=== PATIENT | female | born 1930 | race Hispanic/Latino ===

== ENCOUNTER 2018-06-01 08:29 | Emergency (ER) | payer OTHER ==
[~2018-06-01] VITALS: Ht 149.9 cm; Wt 136.1 kg
--- OUTSIDE RECORDS SUMMARY | 2018-06-01 08:33 | XMS REPORT | Clinical Summary ---
Author Author [facility] Organization [facility] Address Unknown Phone Unavailable Care Team Providers Care Manufacturing Operations Manager Name Role Phone Iam Levy PCP Unavailable Allergies No Known Allergies Medications End Date Status Medication Sig Dispensed Refills Start Date Active aspirin 81 MG chewable Take 81 mg by 0 tablet mouth daily . 5 Active bimatoprost (LUMIGAN) Place 1 drop 0 0.01 % Drop ophthalmic into both 6 solution eyes nightly . Active furosemide (LASIX) 20 MG TAKE 1 TABLET 0 tablet BY MOUTH 2 6 TIMES DAILY. Active gabapentin (NEURONTIN) Take 100 mg 0 100 MG capsule by mouth 6 nightly . Active lovastatin (MEVACOR) 20 TAKE 1 TABLET 0 MG tablet BY MOUTH 6 EVERY DAY AT 5:00 PM. Active cholecalciferol, vitamin Take 1 0 D3, 2,000 unit Cap capsule by mouth daily . Active vitamins Take 1 tablet 0 A,C,C-sqzo-szhbbp by mouth 2 (PRESERVISION AREDS) (two) times [id number] daily. [id number] Cap Active famotidine (PEPCID) 20 MG Take 1 tablet 0 tablet (20 mg total) 6 by mouth nightly TAKE 1 TABLET BY MOUTH TWICE A DAY. Active glipiZIDE (GLUCOTROL) 5 Take 0.5 0 MG tablet tablets (2.5 6 mg total) by mouth every morning before breakfast. 06/01/2017 carvedilol (COREG) 3.125 Take 1 tablet 60 tablet 0 MG tablet (3.125 mg 6 total) by mouth 2 (two) times daily. 06/01/2017 lisinopril Take 1 tablet 30 tablet 0 (PRINIVIL,ZESTRIL) 5 MG (5 mg total) 6 tablet by mouth daily. Active Problems Problem Noted Date Hypoglycemia secondary to sulfonylurea, accidental or unintentional, 05/30/2016 initial encounter Bilateral leg edema 05/30/2016 CKD (chronic kidney disease) stage 3, GFR 30-59 ml/min 05/30/2016 Dry cough 05/30/2016 Hypertensive urgency 05/30/2016 Dyslipidemia 05/30/2016 Gastroesophageal reflux disease without esophagitis 05/30/2016 Diabetes mellitus with neuropathy 05/30/2016 Mild aortic regurgitation 05/30/2016 Acute on chronic diastolic (congestive) heart failure 05/30/2016 Elevated troponin 05/30/2016 Social History Date Tobacco Use Types Packs/Day Years Used Never Smoker Alcohol Use Drinks/Week oz/Week Comments No Sex Assigned at Date Recorded Not on file Industry Job Start Date Occupation Not on file Not on file Not on file Travel End Travel History Travel Start No recent travel history available. Last Filed Vital Signs Not on file Plan of Treatment Health Maintenance Due Date Last Done Comments INFLUENZA VACCINE 03/26/2018 Results Not on fileafter 05/31/2017 Insurance Payer Benefit Subscriber ID Type Phone Address Plan / Group [employer] xxxxxxxxx Maps HMO ALL Contracted Advance Directives For more information, please contact: [place] [phone] [place] [address] Date Inactivated Comments Code Status Date Activated 06/01/2016 6:47 PM Full Code 05/30/2016 1:41 PM This code status was determined by: Patient 05/01/2014 6:21 PM Full Code 04/29/2014 9:23 PM This code status was determined by: Patient
[2018-06-01] MEDS ORDERED: GABAPENTIN100 MG PO (09:15)
[2018-06-01] MEDS ORDERED: CARVEDILOL3.125 MG PO (09:15)
[2018-06-01] MEDS ORDERED: ASPIR 8181 MG PO (09:15)
[2018-06-01] MEDS ORDERED: [UNRECOGNIZED DRUG - OTHER] PO (09:15)
[2018-06-01] MEDS ORDERED: LOVASTATIN20 MG PO (09:15)
[2018-06-01] MEDS ORDERED: LISINOPRIL10 MG PO (09:15)
[2018-06-01] MEDS ORDERED: FAMOTIDINE20 MG PO (09:15)
[2018-06-01] MEDS ORDERED: LASIX20 MG PO (09:15)
[2018-06-01] MEDS ORDERED: AREDS PO (09:15)
[2018-06-01] MEDS ORDERED: LACTATED RINGER'S 1,000 ML IV SCH (09:51)
[2018-06-01] MEDS ORDERED: SODIUM CHLORIDE 0.9% 1000ML 1,000 ML IV SCH (10:00)
--- NOTE | 2018-06-01 10:23 | Diagnostic Imaging Report ---
CT BRAIN [facility] HISTORY: Altered mental status COMPARISON: None. Technique: Noncontrast axial scans were obtained from skull base to the vertex. Coronal and sagittal reconstructions obtained from the axial data. One or more of the following dose reduction techniques were used: Automated exposure control, adjustment of the mA and/or kV according to patient size, and/or utilization of iterative reconstruction technique. DISCUSSION: Scalp/Skull: Unremarkable. Brain sulci: Prominent, especially along the anterior temporal poles. Ventricles: Compensatory dilatation. Extra-axial spaces: No masses or fluid collections. Carotid siphon and vertebral artery calcifications are present. Parenchyma: Mild bilateral deep white matter hypodensity is likely chronic microvascular ischemic change. Otherwise, no masses, hemorrhage, or large vascular territory acute infarct. Dural sinuses: No abnormal densities. Sellar/Suprasellar region: Intact. Skull base: Intact. Incidental findings: Both ocular lenses are thinned. Mild bilateral maxillary sinus mucosal thickening is present. Nonspecific fluid layers in the left maxillary sinus; correlate for acute sinusitis. IMPRESSION: 1. No acute intracranial abnormalities. 2. Mild supratentorial chronic microvascular ischemic change. 3. Generalized cerebral volume loss with slight temporal predominance. Signed by: Dr. Kedar Bonds M.D. on 06/01/2018 10:20 AM
--- NOTE | 2018-06-01 10:33 | Diagnostic Imaging Report ---
PROCEDURE:CXR 1 [facility] COMPARISON:None. INDICATIONS:ams, low blood sugar FINDINGS: Lines/tubes: None Lungs: Moderate inflation of the lungs. Mild patchy left basilar opacity, likely atelectasis. No evidence of lobar consolidation or pulmonary edema. Pleura: No evidence of pleural effusion or pneumothorax. Heart and mediastinum: The cardiomediastinal silhouette is unremarkable. There is atherosclerotic calcification of the aortic arch. Bones: No acute bony findings. CONCLUSION: No acute radiographic abnormality. Dictated by: MARY KATE MILNER M.D. on 06/01/2018 at 10:44 Electronically approved by: MARY KATE MILNER M.D. on 06/01/2018 at 10:44
== END 2018-06-01 14:13 | disposition short-term general hospital (02) ==
LOC: FSED 08:29 → EDBD 08:29 → FSED 14:13
DX: R41.82 Altered mental status, unspecified (principal); R53.83 Other fatigue; I10 Essential (primary) hypertension; E11.9 Type 2 diabetes mellitus without complications; Z79.84 Long term (current) use of oral hypoglycemic drugs; E66.9 Obesity, unspecified; Z68.44 Body mass index [BMI] 60.0-69.9, adult; I25.10 Atherosclerotic heart disease of native coronary artery without angina pectoris; Z86.73 Personal history of transient ischemic attack (TIA), and cerebral infarction without residual deficits; Z79.82 Long term (current) use of aspirin
CPT/HCPCS: 51700; 70450; 71045; 80053; 81003; 82553; 83880; 84484; 85025; 93005; 99285; J7120

== ENCOUNTER 2018-09-13 17:46 | Observation (INO) | payer OTHER ==
[~2018-09-13] VITALS: Ht 149.9 cm; Wt 90.3 kg
[~2018-09-13 17:46] MED LIST: AREDS PO; ASPIR 8181 MG PO; CARVEDILOL3.125 MG PO; FAMOTIDINE20 MG PO; GABAPENTIN100 MG PO; LASIX20 MG PO; LISINOPRIL10 MG PO; LOVASTATIN20 MG PO; [UNRECOGNIZED DRUG - OTHER] PO
--- OUTSIDE RECORDS SUMMARY | 2018-09-13 17:49 | XMS REPORT | Clinical Summary ---
Author Author GARFIELD [facility] Organization [facility] Address Unknown Phone Unavailable Care Team Providers Care Weight And Balance Control Agent Name Role Phone Iam Levy PCP Unavailable Allergies No Known Allergies Medications End Date Status Medication Sig Dispensed Refills Start Date Active aspirin 81 MG chewable Take 81 mg by 0 tablet mouth daily . 5 Active lovastatin (MEVACOR) 20 TAKE 1 TABLET 0 MG tablet BY MOUTH 6 EVERY DAY AT 5:00 PM. Active cholecalciferol, vitamin Take 1 0 D3, 2,000 unit Cap capsule by mouth daily . Active travoprost (TRAVATAN Z) Place 1 drop 0 0.004 % Drop ophthalmic into both drops eyes nightly. Active famotidine (PEPCID) 20 MG Take 1 tablet 0 tablet (20 mg total) 8 by mouth nightly. Active glipiZIDE (GLUCOTROL) 5 Take 0.5 0 MG tablet tablets (2.5 8 mg total) by mouth daily as needed (if accuchecks > 250). 06/06/2019 Active hydrALAZINE (APRESOLINE) Take 1 tablet 90 tablet 0 10 MG tablet (10 mg total) 8 by mouth 3 (three) times daily as needed (for systolic BP > 140). Active polyethylene glycol Take 17 g by 14 each 0 (GLYCOLAX) 17 gram packet mouth daily 8 as needed (for constipation) . Active senna-docusate (SENOKOT Take 1 tablet 30 tablet 0 S) 8.6-50 mg per tablet by mouth 8 every night as needed for Constipation. Active furosemide (LASIX) 20 MG Take 1 tablet 20 tablet 0 tablet (20 mg total) 8 by mouth daily. 06/11/2019 Active bumetanide (BUMEX) 1 MG Take 1 tablet 20 tablet 0 tablet (1 mg total) 8 by mouth daily. 06/01/2018 Discontinued bimatoprost (LUMIGAN) Place 1 drop 0 0.01 % Drop ophthalmic into both 6 solution eyes nightly . 06/06/2018 Discontinued furosemide (LASIX) 20 MG Take 20 mg by 0 tablet mouth 2 (two) 6 times daily TAKE 1 TABLET BY MOUTH 2 TIMES DAILY. 06/06/2018 Discontinued gabapentin (NEURONTIN) Take 100 mg 0 100 MG capsule by mouth 6 nightly . 06/01/2018 Discontinued vitamins Take 1 tablet 0 A,C,R-utxp-ssvijq by mouth 2 (PRESERVISION AREDS) (two) times 14,320-226-200 daily. ikqt-ej-vhvk Cap 06/01/2018 Discontinued famotidine (PEPCID) 20 MG Take 1 tablet 0 tablet (20 mg total) 6 by mouth nightly TAKE 1 TABLET BY MOUTH TWICE A DAY. 06/01/2018 Discontinued glipiZIDE (GLUCOTROL) 5 Take 0.5 0 MG tablet tablets (2.5 6 mg total) by mouth every morning before breakfast. 06/06/2018 Discontinued carvedilol (COREG) 3.125 Take 3.125 mg 0 MG tablet by mouth 2 (two) times daily with breakfast and dinner. 06/06/2018 Discontinued glipiZIDE (GLUCOTROL) 5 Take 5 mg by 0 MG tablet mouth daily as needed (if accuchecks > 200). 06/06/2018 Discontinued famotidine (PEPCID) 20 MG Take 20 mg by 0 tablet mouth 2 (two) times daily. 06/06/2018 Discontinued lisinopril Take 5 mg by 0 (PRINIVIL,ZESTRIL) 5 MG mouth daily. tablet 06/06/2018 Discontinued furosemide (LASIX) 20 MG Take 1 tablet 0 tablet (20 mg total) 8 by mouth daily TAKE 1 TABLET BY MOUTH 2 TIMES DAILY. 06/10/2018 cefdinir (OMNICEF) 300 MG Take 1 3 capsule 0 12/13/201 capsule capsule (300 8 mg total) by mouth daily for 3 days. Active Problems Problem Noted Date Acute metabolic encephalopathy 06/06/2018 Acute hyperkalemia 06/04/2018 CANDY (acute kidney injury) 06/01/2018 General weakness 06/01/2018 Bradycardia 06/01/2018 Bilateral leg edema 06/01/2018 Essential hypertension 06/01/2018 Diabetic neuropathy associated with type 2 diabetes mellitus 06/01/2018 Physical deconditioning 06/01/2018 CKD (chronic kidney disease) stage 3, GFR 30-59 ml/min 05/30/2016 Hyperlipidemia 05/30/2016 Gastroesophageal reflux disease without esophagitis 05/30/2016 Type 2 diabetes mellitus with stage 3 chronic kidney disease, without 05/30/2016 long-term current use of insulin Chronic diastolic heart failure 05/30/2016 Resolved Problems Problem Noted Date Resolved Date UTI (urinary tract infection) 06/03/2018 06/04/2018 Altered mental status 06/03/2018 06/04/2018 Hypoglycemia secondary to sulfonylurea, accidental or unintentional, 05/30/2016 06/01/2018 initial encounter Bilateral leg edema 05/30/2016 06/01/2018 Dry cough 05/30/2016 06/01/2018 Hypertensive urgency 05/30/2016 06/01/2018 Mild aortic regurgitation 05/30/2016 06/01/2018 Elevated troponin 05/30/2016 06/01/2018 Encounters Care Team Description Date Type Specialty Leonardo Rai MD Generalized weakness (Primary Dx); Peripheral edema; Hypervolemia, unspecified hypervolemia type; Pleural effusion 06/11/2018 Emergency Emergency Medicine 06/11/2018 Travel 06/02/2018 Orders Only General Internal Medicine Rusty Rebollar MD CANDY (acute kidney injury) (HCC) (Primary Dx) 06/01/2018 Hospital Cardiology - Encounter 06/06/2018 after 09/12/2017 Social History Date Tobacco Use Types Packs/Day Years Used Never Smoker Smokeless Tobacco: Never Used Alcohol Use Drinks/Week oz/Week Comments No Sex Assigned at Date Recorded Not on file Industry Job Start Date Occupation Not on file Not on file Not on file Travel End Travel History Travel Start No recent travel history available. Last Filed Vital Signs Time Taken Vital Sign Reading 06/11/2018 10:18 AM [employer] Blood Pressure 158/62 06/11/2018 8:48 AM [employer] Pulse 63 06/11/2018 7:08 AM [employer] Temperature 36.7 C (98 F) 06/11/2018 8:48 AM [employer] Respiratory Rate 18 06/11/2018 10:18 AM [employer] Oxygen Saturation 98% - Inhaled Oxygen - Concentration 06/11/2018 7:08 AM [employer] Weight 81.6 kg (180 lb) 06/11/2018 7:08 AM [employer] Height 157.5 cm (5' 2") 06/11/2018 7:08 AM [employer] Body Mass Index 32.92 Plan of Treatment Not on file Procedures Comments Procedure Name Priority Date/Time Associated Diagnosis REPORT OF PROCEDURE - 08/24/2018 ENDOSCOPY SCAN 11:04 AM [facility] [employer] [facility] REPORT OF PROCEDURE - 06/13/2018 ENDOSCOPY SCAN 7:20 AM [employer] RHYTHM STRIP - SCAN 06/13/2018 7:20 AM [employer] XR CHEST 1 VIEW STAT 06/11/2018 PORTABLE/BEDSIDE 8:05 AM [employer]ERY B-TYPE NATRIURETIC FACTOR STAT 06/11/2018 (BNP) 7:48 AM [employer] [facility]ERY TROPONIN I STAT 06/11/2018 7:48 AM [employer] MAGNESIUM STAT 06/11/2018 7:48 AM [employer]ERY BASIC METABOLIC PANEL (7) STAT 06/11/2018 7:48 AM [employer] ED ECG INTERPRETATION Routine 06/11/2018 7:33 AM [employer] CBC W/PLT COUNT & AUTO STAT 06/11/2018 DIFFERENTIAL 7:23 AM [employer] CBC W/PLT COUNT & AUTO STAT 06/11/2018 DIFFERENTIAL 7:23 AM [employer] ECG 12-LEAD STAT 06/11/2018 7:15 AM [employer] POCT-GLUCOSE METER Routine 06/06/2018 12:26 PM [employer] MR BRAIN WITHOUT IV STAT 06/06/2018 CONTRAST 11:26 AM [employer] EEG AWAKE AND DROWSY BEAR 06/06/2018 10:24 AM [employer] POCT-GLUCOSE METER Routine 06/06/2018 8:58 AM [employer] B-TYPE NATRIURETIC FACTOR Routine 06/06/2018 (BNP) 7:04 AM [employer] [facility]ERY T3, FREE Routine 06/06/2018 6:54 AM [employer] T4, FREE Routine 06/06/2018 6:54 AM [employer]ERY BASIC METABOLIC PANEL (7) Routine 06/06/2018 6:54 AM [employer] ECG 12-LEAD Routine 06/06/2018 6:27 AM [employer]ERY POCT-GLUCOSE METER Routine 06/05/2018 9:11 PM [employer] BLOOD GAS, ARTERIAL STAT 06/05/2018 6:20 PM [employer] POCT-GLUCOSE METER Routine 06/05/2018 5:21 PM [employer]ERY POCT-GLUCOSE METER Routine 06/05/2018 4:46 PM [employer] POCT-GLUCOSE METER Routine 06/05/2018 12:20 PM [employer]ERY POCT-GLUCOSE METER Routine 06/05/2018 8:35 AM [employer] CBC W/PLT COUNT & AUTO Routine 06/05/2018 DIFFERENTIAL 5:49 AM [employer]ERY PHOSPHORUS Routine 06/05/2018 5:49 AM [employer] B-TYPE NATRIURETIC FACTOR Routine 06/05/2018 (BNP) 5:49 AM [employer] CBC W/PLT COUNT & AUTO Routine 06/05/2018 DIFFERENTIAL 5:49 AM [employer]IVERY BASIC METABOLIC PANEL (7) Routine 06/05/2018 5:49 AM [employer] DELIVERY POCT-GLUCOSE METER Routine 06/04/2018 9:17 PM [employer]IVERY POCT-GLUCOSE METER Routine 06/04/2018 6:03 PM [employer]IVERY POCT-GLUCOSE METER Routine 06/04/2018 1:00 PM [employer]ERY POCT-GLUCOSE METER Routine 06/04/2018 9:40 AM [facility] CBC W/PLT COUNT & AUTO Routine 06/04/2018 DIFFERENTIAL 5:18 AM [employer]IV[employer] CBC W/PLT COUNT & AUTO Routine 06/04/2018 DIFFERENTIAL 5:18 AM [employer] DELIVERY BASIC METABOLIC PANEL (7) Routine 06/04/2018 5:18 AM [employer] DELIVERY POCT-GLUCOSE METER Routine 06/03/2018 9:36 PM [employer]IVERY POCT-GLUCOSE METER Routine 06/03/2018 6:36 PM [employer] POTASSIUM Routine 06/03/2018 6:08 PM [employer]IVERY POCT-GLUCOSE METER Routine 06/03/2018 1:27 PM [employer] CBC W/PLT COUNT & AUTO Routine 06/03/2018 DIFFERENTIAL 10:42 AM [employer] CBC W/PLT COUNT & AUTO Routine 06/03/2018 DIFFERENTIAL 10:42 AM [employer] DELIVERY BASIC METABOLIC PANEL (7) Routine 06/03/2018 10:42 AM [employer] DELIVERY POCT-GLUCOSE METER Routine 06/03/2018 7:53 AM [employer] POCT-GLUCOSE METER Routine 06/02/2018 8:51 PM [employer]ERY HEMOGLOBIN AND HEMATOCRIT Routine 06/02/2018 5:51 PM [employer]ERY AMMONIA Routine 06/02/2018 5:51 PM [employer] POCT-GLUCOSE METER Routine 06/02/2018 4:51 PM [employer] URINALYSIS W/ REFLEX Routine 06/02/2018 URINE CULTURE 3:15 PM [employer] URINE CULTURE Routine 06/02/2018 3:15 PM [employer] POCT-GLUCOSE METER Routine 06/02/2018 11:37 AM [employer] CBC W/PLT COUNT & AUTO Routine 06/02/2018 DIFFERENTIAL 11:07 AM [employer] CBC W/PLT COUNT & AUTO Routine 06/02/2018 DIFFERENTIAL 11:07 AM [employer]ERY POTASSIUM Routine 06/02/2018 11:07 AM [employer]ERY POCT-GLUCOSE METER Routine 06/02/2018 7:54 AM [employer]ERY TSH Routine 06/02/2018 5:34 AM [employer] B-TYPE NATRIURETIC FACTOR Routine 06/02/2018 (BNP) 5:34 AM [employer]ERY HEPATIC FUNCTION PANEL Routine 06/02/2018 5:34 AM [employer]ERY BASIC METABOLIC PANEL (7) Routine 06/02/2018 5:34 AM [employer]ERY POCT-GLUCOSE METER Routine 06/02/2018 5:22 AM [employer] ECG 12-LEAD Routine 06/02/2018 1:45 AM [employer] ECG 12-LEAD Routine 06/02/2018 1:45 AM [facility] [facility] Procedure Note - Interface, External Ris In - 06/02/2018 1:50 AM [employer] [employer] Ventricula r Rate 65 BPM Atrial Rate 65 BPM P-R Interval 212 ms QRS Duration 94 ms Q-T Interval 404 ms QTC Calculatio n(Bazett) 420 ms P [place] 47 degrees R [place] -22 degrees T [place] 83 degrees Sinus rhythm with 1st degree A-V block Low voltage QRS Borderline ECG When compared with ECG of 8 16:27, No significan t change was found POCT-GLUCOSE METER Routine 06/01/2018 8:47 PM [employer] [employer] [facility]ERY VENOUS DOPPLER LEGS BEAR 06/01/2018 BILATERAL 8:32 PM [employer]ERY POCT-GLUCOSE METER Routine 06/01/2018 5:32 PM [employer]ERY TROPONIN I STAT 06/01/2018 5:03 PM [employer] ECG 12-LEAD Routine 06/01/2018 4:27 PM [employer] ECG 12-LEAD STAT 06/01/2018 4:26 PM [employer] after 09/12/2017 Results * EKG-SCANNED (08/24/2018 11:04 AM [employer]) Only the most recent of 2 results within the time period is included. Narrative Performed At * RHYTHM STRIP - SCAN (06/13/2018 7:20 AM [employer]) Narrative Performed At * XR chest 1 view portable / bedside (06/11/2018 8:05 AM [employer]) Narrative Performed At FINAL REPORT GE RIS INDICATION: GENERALIZED WEAKNESS, NOT ASSOCIATED WITH EXTREMITIES COMPARISON: May 30, 2016 TECHNIQUE: Single frontal view of the chest. IMPRESSION: Lungs and pleura: Mild interstitial congestion. A moderate left effusion. No right effusion. Heart and mediastinum: Normal heart size. Unremarkable mediastinal contours. Osseous structures: No acute abnormality. Other: None. Signed: JR Rowe Robert MD Report Verified Date/Time:06/11/2018 08:14:52 Reading Location: [address] Neuro Reading Room Procedure Note Interface, External Ris In - 06/11/2018 8:17 AM [employer] FINAL REPORT INDICATION: GENERALIZED WEAKNESS, NOT ASSOCIATED WITH EXTREMITIES COMPARISON: May 30, 2016 TECHNIQUE: Single frontal view of the chest. IMPRESSION: Lungs and pleura: Mild interstitial congestion. A moderate left effusion. No right effusion. Heart and mediastinum: Normal heart size. Unremarkable mediastinal contours. Osseous structures: No acute abnormality. Other: None. Signed: JR Rowe Robert MD Report Verified Date/Time: 06/11/2018 08:14:52 Reading Location: [address] Neuro Reading Room Performing Organization Address City/State/Zipcode Phone Number RIS * Troponin I (06/11/2018 7:48 AM [employer]) Only the most recent of 2 results within the time period is included. Troponin I 0.01 0.00 - 0.03 ng/mL [facility] Specimen Blood - Arm, Right Narrative Performed At Troponin I (TnI) levels must be interpreted in the context of the presenting [facility] symptoms and the clinical findings. Elevated TnI levels indicate myocardial [facility] damage, but are not specific for ischemic heart disease. Elevated TnI levels are seen in patients with other cardiac conditions (including myocarditis and congestive heart failure), and slight TnI elevations occur in patients with other conditions, including sepsis, renal failure, acidosis, acute neurological disease, and persistent tachyarrhythmia. Performing Organization Address City/[facility] [place] [address] [phone] * B-type Natriuretic Factor (BNP) (06/11/2018 7:48 AM [employer] [employer] DELIVERY) Only the most recent of 4 results within the time period is included. BNP 302 (H) 0 - 100 pg/mL [facility] Specimen Blood - Arm, Right Performing Organization Address City/[facility] [address] [phone] * Magnesium (06/11/2018 7:48 AM [employer] [employer]IVERY) Magnesium 2.8 (H)Comment: Specimen 1.6 - 2.6 mg/dL [facility] Specimen Blood - Arm, Right Performing Organization Address [facility] [place] [address] [phone] [place] [address] * Basic Metabolic Panel (06/11/2018 7:48 AM [employer] DELIVERY) Only the most recent of 6 results within the time period is included. Sodium 144 136 - 145 meq/L [facility] Potassium 4.8Comment: Specimen 3.5 - 5.1 meq/L [facility] moderately hemolyzed [facility] Chloride 114 (H) 98 - 107 meq/L [facility] CO2 23 22 - 29 meq/L [facility] BUN 31 (H) 7 - 21 mg/dL [facility] Creatinine 1.30 (H)Comment: Specimen 0.57 - 1.25 mg/dL [facility] moderately hemolyzed [facility] Glucose 121 (H) 70 - 105 mg/dL [facility] Calcium 8.2 (L) 8.4 - 10.2 mg/dL [facility] EGFR 39Comment: ESTIMATED GFR IS mL/min/1.73 sq m [facility] NOT ACCURATE CREATININE [facility] CLEARANCE IN PREDICTING GLOMERULAR FILTRATION RATE. ESTIMATED GFR IS NOT APPLICABLE FOR DIALYSIS PATIENTS. Specimen Blood - Arm, Right Performing Organization Address City/State/Zipcode Phone Number [facility] [address] [place] [address] [facility] * ECG/EKG Interpretation (06/11/2018 7:33 AM [employer] [employer]) Narrative Performed At Leonardo Rai MD 06/11/20187:48 PM ECG/EKG Interpretation Date/Time: 06/11/2018 7:38 AM Performed by: Leonardo Rai MD Authorized by: Leonardo Rai MD The ECG was interpreted by ED physician. The ECG is interpreted as sinus rhythm. Rate is normal rate. Heart rate is 81 BPM. [place] is normal. ECG reviewed and does not meet STEMI criteria. Patient tolerance: Patient tolerated the procedure well with no immediate complications * CBC with platelet count + automated diff (06/11/2018 7:23 AM [employer] [employer]ERY) Only the most recent of 5 results within the time period is included. WBC 5.3 3.5 - 10.5 K/L [facility] RBC 2.89 (L) 3.93 - 5.22 M/L [facility] Hemoglobin 9.0 (L) 11.2 - 15.7 GM/DL [facility] Hematocrit 30.0 (L) 34.1 - 44.9 % [facility] MCV 103.8 (H) 79.4 - 94.8 fL [facility] MCH 31.1 25.6 - 32.2 pg [facility] MCHC 30.0 (L) 32.2 - 35.5 GM/DL [facility] RDW 15.8 (H) 11.7 - 14.4 % [facility] Platelets 118 (L) 150 - 450 K/CU MM [facility] MPV 10.8 9.4 - 12.3 fL [facility] nRBC 0 0 - 0 /100 WBC [facility] % Neutros 67 % [facility] % Lymphs 19 % [facility] % Monos 6 % [facility] % Eos 6 % [facility] % Baso 1 % [facility] # Neutros 3.58 1.56 - 6.13 K/L [facility] # Lymphs 1.03 (L) 1.18 - 3.74 K/L [facility] # Monos 0.34 0.24 - 0.36 K/L [facility] # Eos 0.29 0.04 - 0.36 K/L [facility] # Baso 0.04 0.01 - 0.08 K/L [facility] Immature 1 0 - 1 % [facility] Granulocytes-Relative [facility] Specimen Blood Performing Organization Address City/State/Zipcode Phone Number [facility] [address] [place] [address] [facility] * ECG 12 lead (06/11/2018 7:15 AM [facility] [employer] DELIVERY) Only the most recent of 5 results within the time period is included. Narrative Performed At Ventricular Rate 81 BPM GE MUSE Atrial Rate 81 BPM P-R Interval 166 ms QRS Duration 84 ms Q-T Interval 386 ms QTC Calculation(Bazett) 448 ms P [place] 32 degrees R [place] -33 degrees T [place] 52 degrees Normal sinus rhythm Left axis deviation Low voltage QRS Septal infarct , age undetermined Possible Lateral infarct , age undetermined Abnormal ECG No previous ECGs available Confirmed by MD Galvez Mahboob ([id number]) on 06/11/2018 2:48:46 PM Procedure Note Interface, External Ris In - 06/11/2018 2:49 PM [employer] [employer]ERY Ventricular Rate 81 BPM Atrial Rate 81 BPM P-R Interval 166 ms QRS Duration 84 ms Q-T Interval 386 ms QTC Calculation(Bazett) 448 ms P [place] 32 degrees R [place] -33 degrees T [place] 52 degrees Normal sinus rhythm Left axis deviation Low voltage QRS Septal infarct , age undetermined Possible Lateral infarct , age undetermined Abnormal ECG No previous ECGs available Confirmed by MD Galvez Mahboob ([id number]) on 06/11/2018 2:48:46 PM Performing Organization Address City/State/Zipcode Phone Number [employer] * POC-Glucose meter (06/06/2018 12:26 PM [employer] [employer] DELIVERY) Only the most recent of 22 results within the time period is included. POC-Glucose Meter 231 (H)Comment: TESTED AT 70 - 110 mg/dL [facility] [address] [facility] [address] Specimen Blood Performing Organization Address City/[facility] Phone Number [place] [phone] [place], [place] [phone] [facility] * MR brain without IV contrast (06/06/2018 11:26 AM [employer] DELIVERY) Narrative Performed At FINAL REPORT [employer] MR, BRAIN, WITHOUT CONTRAST INDICATION: Stroke weakness, confusion TECHNIQUE: Multiplanar, multisequence MR imaging of the brain without intravenous contrast. COMPARISON: Correlation and noncontrast head CT April 29, 2014 FINDINGS: Limited by motion artifact. There is no restricted diffusion.Moderate global volume loss is present. There is no intracranial hemorrhage. Deep white matter changes suggest leukoaraiosis. The ventricles are normal in size and configuration. The larger intracranial vascular flow-voids are preserved. Paranasal sinuses and mastoid air cells are clear. There is normal bone marrow signal intensity within the calvarium and skull base. IMPRESSION: Chronic involutional changes without acute ischemic or hemorrhagic injury. Signed: JR Rowe Robert MD Report Verified Date/Time:06/06/2018 11:30:38 Reading Location: [facility] Neuro Reading Room Procedure Note Interface, External Ris In - 06/06/2018 11:32 AM [employer] DELIVERY FINAL REPORT MR, BRAIN, WITHOUT CONTRAST INDICATION: Stroke weakness, confusion TECHNIQUE: Multiplanar, multisequence MR imaging of the brain without intravenous contrast. COMPARISON: Correlation and noncontrast head CT April 29, 2014 FINDINGS: Limited by motion artifact. There is no restricted diffusion. Moderate global volume loss is present. There is no intracranial hemorrhage. Deep white matter changes suggest leukoaraiosis. The ventricles are normal in size and configuration. The larger intracranial vascular flow-voids are preserved. Paranasal sinuses and mastoid air cells are clear. There is normal bone marrow signal intensity within the calvarium and skull base. IMPRESSION: Chronic involutional changes without acute ischemic or hemorrhagic injury. Signed: JR Rowe Robert MD Report Verified Date/Time: 06/06/2018 11:30:38 Reading Location: [facility] [address] Neuro Reading Room Performing Organization Address City/State/Zipcode Phone Number [facility] * EEG AWAKE AND DROWSY (06/06/2018 10:24 AM [employer] DELIVERY) Narrative Performed At DATE OF EXAMINATION: 06/06/18 [employer] EEG NO: [id number] ICD-10: G40.9 CPT: 04803 CONDITION OF REPORT: This is a digital EEG study, using the standard International 10-20 System for placement of 22 electrodes, including eye movement leads, and an EKG lead. TECHNICAL SUMMARY: During the maximally awake state, a well-regulated, moderate amplitude occipital dominant rhythm of 9-10 Hz alpha is present bilaterally. More anteriorly, similar as well as faster frequencies of lower amplitudes are present, including low voltage 13-18 Hz beta in the anterior leads. Hyperventilation was not performed. Photic stimulation elicits no epileptiform activity. With drowsiness, the overall background amplitudes are relatively diminished, while increased amounts of diffuse 5-7 Hz theta and rhythmical slowing emerge. During sleep, POSTS, sleep spindles, K-complexes, and vertex waves are present. IMPRESSION: This is a normal EEG study, capturing the full spectrum of the awake, drowsy, and asleep states. There is no evidence for epileptiform abnormality, including absence of electrographic seizure. COMMENT: The absence of epileptiform abnormality does not necessarily preclude the clinical diagnosis of epilepsy. Baldo Marinelli MD Department of Neurology [facility] Procedure Note Interface, External Ris In - 06/06/2018 11:39 AM [employer]F DELIVERY DATE OF EXAMINATION: 06/06/18 EEG NO: [id number] ICD-10: G40.9 CPT: 70068 CONDITION OF REPORT: This is a digital EEG study, using the standard International 10-20 System for placement of 22 electrodes, including eye movement leads, and an EKG lead. TECHNICAL SUMMARY: During the maximally awake state, a well-regulated, moderate amplitude occipital dominant rhythm of 9-10 Hz alpha is present bilaterally. More anteriorly, similar as well as faster frequencies of lower amplitudes are present, including low voltage 13-18 Hz beta in the anterior leads. Hyperventilation was not performed. Photic stimulation elicits no epileptiform activity. With drowsiness, the overall background amplitudes are relatively diminished, while increased amounts of diffuse 5-7 Hz theta and rhythmical slowing emerge. During sleep, POSTS, sleep spindles, K-complexes, and vertex waves are present. IMPRESSION: This is a normal EEG study, capturing the full spectrum of the awake, drowsy, and asleep states. There is no evidence for epileptiform abnormality, including absence of electrographic seizure. COMMENT: The absence of epileptiform abnormality does not necessarily preclude the clinical diagnosis of epilepsy. Baldo Marinelli MD Department of Neurology [facility] Performing Organization Address City/State/Zipcode Phone Number GE RIS * T3, free (06/06/2018 6:54 AM GAUGER CHIEF DELIVERY) T3, Free 2.50 1.71 - 3.71 pg/mL [facility] Specimen Blood - Arm, Left Narrative Performed At Performing Organization Address City/State/Zipcode Phone Number [facility] [address] [address] [phone] [place] [address] * T4, free (06/06/2018 6:54 AM GAUGER CHIEF DELIVERY) Free T4 1.06 0.70 - 1.48 ng/dL [facility] Specimen Blood - Arm, Left Performing Organization Address [facility] Phone Number [address] [address] [phone] [place] [address] * Blood gas, arterial (06/05/2018 6:20 PM [employer] CHIEF DELIVERY) pH, Arterial 7.48 (H) 7.35 - 7.45 [facility] pCO2, Arterial 37 35 - 45 mmHg [facility] pO2, Arterial 57 (L) 80 - 90 mmHg [facility] O2 Sat, Arterial 92.7 (L) 96.0 - 97.0 % [facility] HCO3, Arterial 27 21 - 29 mmol/L [facility] Base Excess, Arterial 2.7 -2.0 - 3.0 mmol/L [facility] Patient Temperature 35.9 C [facility] FIO2 21.0 % [facility] Specimen Blood, Arterial - Arm, Left Performing Organization Address [facility] Phone Number [address] [address] [phone] [place] [address] * Phosphorus (06/05/2018 5:49 AM GAUGER CHIEF DELIVERY) Phosphorus 3.9 2.3 - 4.7 mg/dL [facility] Specimen Blood - Arm, Left Performing Organization Address City/[facility] [place] [place] [address] [phone] * Potassium (06/03/2018 6:08 PM [employer]GER CHIEF DELIVERY) Only the most recent of 2 results within the time period is included. Potassium 5.5 (H) 3.5 - 5.1 meq/L [facility] Specimen Blood - Arm, Left Performing Organization Address [facility] Phone Number [address] * Hemoglobin and hematocrit (06/02/2018 5:51 PM [employer]GER CHIEF DELIVERY) Hemoglobin 8.3 (L) 11.2 - 15.7 GM/DL [facility] Hematocrit 26.8 (L) 34.1 - 44.9 % [facility] Specimen Blood - Arm, Left Performing Organization Address [facility] Phone Number [address] * Ammonia (06/02/2018 5:51 PM [employer]AUGER CHIEF DELIVERY) Ammonia 38 18 - 72 mol/L [facility] Specimen Blood - Arm, Left Performing Organization Address [facility] Phone Number [address] * Urinalysis w/Microscopic + Reflex to Culture (06/02/2018 3:15 PM [employer] CHIEF DELIVERY) Color, UA Yellow [facility] Clarity, UA Hazy [facility] Specific Nuevo, UA 1.013 1.001 - 1.035 [facility] pH, UA 5.0 5.0 - 8.0 [facility] Protein, UA 30 mg/dL (A) Negative [facility] Glucose, UA Negative Negative [facility] Ketones, UA Negative Negative [facility] Bilirubin, UA Negative Negative [facility] Blood, UA Large (A) Negative [facility] Nitrite, UA Negative Negative [facility] Leukocytes, UA Large (A) Negative [facility] Urobilinogen, UA 0.2 0.2 - 1.0 mg/dL [facility] RBC, UA 327 /HPF [facility] WBC, UA 81 /HPF [facility] Squam Epithel, UA 4 /HPF [facility] Hyaline Casts, UA 6 /LPF [facility] Specimen Source [facility] Specimen Urine - Urine, Ramey Performing Organization Address [facility] Phone Number [address] [address] MED[facility]ENTER * Urine culture (06/02/2018 3:15 PM [employer]AUGER CHIEF DELIVERY) Result ESCHERICHIA COLI (A) [facility] Specimen Urine - Urine, Ramey Antibiotic Method Susceptibility Organism Amikacin <=2: Susceptible Escherichia coli Ampicillin + Sulbactam <=2: Susceptible Escherichia coli Aztreonam <=1: Susceptible Escherichia coli Cefepime <=1: Susceptible Escherichia coli Cefoxitin 16: Resistant Escherichia coli Ceftazidime <=1: Susceptible Escherichia coli Ceftriaxone <=1: Susceptible Escherichia coli Ertapenem <=0.5: Susceptible Escherichia coli Gentamicin <=1: Susceptible Escherichia coli Levofloxacin <=0.12: Susceptible Escherichia coli Meropenem <=0.25: Susceptible Escherichia coli Nitrofurantoin 32: Susceptible Escherichia coli Piperacillin + Tazobactam <=4: Susceptible Escherichia coli Tetracycline <=1: Susceptible Escherichia coli Tobramycin <=1: Susceptible Escherichia coli Trimethoprim + Sulfamethoxazole <=20: Susceptible Escherichia coli Performing Organization Address [facility] Phone Number [address] [address] [facility] [place] * TSH (06/02/2018 5:34 AM GAUGER CHIEF DELIVERY) TSH 9.24 (H) 0.35 - 4.94 uIU/mL [facility] Specimen Blood - Arm, Right Performing Organization Address [facility] Phone Number [facility] [address] [place] [address] [facility] * Hepatic function panel (06/02/2018 5:34 AM [employer]GER CHIEF DELIVERY) Protein, Total 5.9 (L)Comment: Specimen 6.0 - 8.3 gm/dL [facility] Albumin 3.0 (L)Comment: Specimen 3.5 - 5.0 g/dL [facility] slightly hemolyzed [facility] Total Bilirubin 0.3Comment: Specimen slightly 0.2 - 1.2 mg/dL [facility] Bilirubin, Direct 0.1Comment: Specimen slightly 0.1 - 0.5 mg/dL [facility] Alkaline Phosphatase 86 40 - 150 U/L [facility] AST 29Comment: Specimen slightly 5 - 34 U/L [facility] ALT 21Comment: Specimen slightly 6 - 55 U/L [facility] Specimen Blood - Arm, Right Performing Organization Address City/State/Zipcode Phone Number [facility] [address] [place] [address] [phone] [address] * Venous doppler legs bilateral (06/01/2018 8:32 PM [employer]GER CHIEF DELIVERY) Ejection Fraction [facility]ART[facility] MKCKESSON CPACS Impressions Performed At Right Impression [facility]ART[facility] 1. There is no deep venous obstruction in the common femoral, profunda MKCKESSON CPACS femoral, femoral, popliteal or posterior tibial veins where visualized. 2. The peroneal veins are not visualized. 3. There is no superficial venous obstruction in the great saphenous vein where visualized. Left Impression 1. There is no deep venous obstruction in the common femoral, profunda femoral or femoral veins where visualized. 2. The popliteal, posterior tibial and peroneal veins are not visualized. 3. There is no superficial venous obstruction in the great saphenous vein where visualized. Conclusions Summary Venous duplex imaging and compression of the bilateral lower extremities were performed. The veins were technically difficult to visualize due to edema and patient body habitus. The bilateral venous systems were patent and compressible with no evidence of thrombus where visualized. The venous Doppler waveforms were phasic with respiration . Signature Velocities are measured in cm/s ; Diameters are measured in cm Narrative Performed At LAB - Lower Extremities DVT Study [facility] Demographics [facility] Patient Name LUCAS WRIGHT Date of Study06/01/2018 BEN [id number] Visit Number [id number] Gender Female Accession Number [id number] Date of Birth1930 [facility] Rusty Neil Room [id number] Physician Yoly GalarzaInterpreting Maura Mcleod MD RVTPhysician Procedure Type of Study: Veins: Lower Extremities DVT Study, VENOUS DOPPLER LEG, BILATERAL. Indications for Study:Leg swelling. Patient Status:BEAR. Study Location:Portable. Technical Quality:Technically Difficult. Risk Factors History of Disease + + + + !Diagnosis!Date !Comments ! + + + + !CHF !! ! + + + + !History/Risk Factors:!06/01/2018!Leg Swelling ! + + + + Procedure Note Interface, External Ris In - 06/02/2018 5:36 PM GAUGER CHIEF DELIVERY [facility] LAB - Lower Extremities DVT Study Demographics Patient Name LUCAS WRIGHT Date of Study 06/01/2018 BEN Age 87 Visit Number [id number] Gender Female Accession Number [id number] Date of 1930 Referring Smooth Neil Room Number [id number] Physician Bodily Injury Adjuster Mounika Galarza Interpreting Maura Mcleod MD RVT Physician Procedure Type of Study: Veins: Lower Extremities DVT Study, VENOUS DOPPLER LEG, BILATERAL. Indications for Study:Leg swelling. Patient Status:BEAR. Study Location:Portable. Technical Quality:Technically Difficult. Risk Factors History of Disease + + + + !Diagnosis !Date !Comments ! + + + + !CHF ! ! ! + + + + !History/Risk Factors: !06/01/2018!Leg Swelling ! + + + + Impressions Right Impression 1. There is no deep venous obstruction in the common femoral, profunda femoral, femoral, popliteal or posterior tibial veins where visualized. 2. The peroneal veins are not visualized. 3. There is no superficial venous obstruction in the great saphenous vein where visualized. Left Impression 1. There is no deep venous obstruction in the common femoral, profunda femoral or femoral veins where visualized. 2. The popliteal, posterior tibial and peroneal veins are not visualized. 3. There is no superficial venous obstruction in the great saphenous vein where visualized. Conclusions Summary Venous duplex imaging and compression of the bilateral lower extremities were performed. The veins were technically difficult to visualize due to edema and patient body habitus. The bilateral venous systems were patent and compressible with no evidence of thrombus where visualized. The venous Doppler waveforms were phasic with respiration . Signature Velocities are measured in cm/s ; Diameters are measured in cm Performing Organization Address City/State/Zipcode Phone Number [facility] MKCKESSON CPACS after 09/12/2017 Insurance Payer Benefit Subscriber ID Type Phone Address Plan / Group [employer] xxxxxxxxx Maps O ALL Contracted Advance Directives For more information, please contact: [facility] [address] [place] [phone] Date Inactivated Comments Code Status Date Activated 06/11/2018 7:00 AM Full Code 06/01/2018 4:58 PM This code status was determined by: Patient 06/01/2016 6:47 PM Full Code 05/30/2016 1:41 PM This code status was determined by: Patient 05/01/2014 6:21 PM Full Code 04/29/2014 9:23 PM This code status was determined by: Patient
--- OUTSIDE RECORDS SUMMARY | 2018-09-13 17:50 | XMS REPORT ---
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 Allergies, Adverse Reactions, Alerts This patient has no known allergies or adverse reactions. Medications This patient has no known medications. Results Test Description Test Time Test Comments Text Results Atomic Results Result Comments TROPONIN I 2018-06-11 08:28:00 TROPONIN I (BEAKER) (test wdvz=547) 0.01 ng/mL 0.00-0.03 Troponin I (TnI) levels must be interpreted in the context of the presenting sym ptoms and the clinical findings. Elevated TnI levels indicate myocardial damage, but are not specific for ischemic heart disease. Elevated TnI levels are seen in patients with other cardiac conditions (including myocarditis and congestive h eart failure), and slight TnI elevations occur in patients with other conditions , including sepsis, renal failure, acidosis, acute neurological disease, and per sistent tachyarrhythmia.B-TYPE NATRIURETIC FACTOR (BNP)2018-06-11 08:26:00* Test Item Value Reference Range Comments B-TYPE NATRIURETIC PEPTIDE (BEAKER) (test skmh=863) 302 pg/mL 0-100 [id number] 08:20:00* Test Item Value Reference Range Comments MAGNESIUM (BEAKER) (test rqlc=360) 2.8 mg/dL 1.6-2.6 Specimen moderately hemolyzed BASIC METABOLIC [id number] 08:20:00* Test Item Value Reference Range Comments SODIUM (BEAKER) (test xufr=485) 144 meq/L 136-145 POTASSIUM (BEAKER) (test qjsy=345) 4.8 meq/L 3.5-5.1 Specimen moderately hemolyzed CHLORIDE (BEAKER) (test knxs=200) 114 meq/L 98-107 CO2 (BEAKER) (test xtjf=387) 23 meq/L 22-29 BLOOD UREA NITROGEN (BEAKER) (test qfcw=451) 31 mg/dL 7-21 CREATININE (BEAKER) (test cqkt=615) 1.30 mg/dL 0.57-1.25 Specimen moderately hemolyzed GLUCOSE RANDOM (BEAKER) (test apyz=632) 121 mg/dL 70-105 CALCIUM (BEAKER) (test enpt=189) 8.2 mg/dL 8.4-10.2 EGFR (BEAKER) (test fbzh=2202) 39 mL/min/1.73 sq m ESTIMATED GFR IS NOT ACCURATE CREATININE CLEARANCE IN PREDICTING GLOMERULAR FILTRATION RATE. ESTIMATED GFR IS NOT APPLICABLE FOR DIALYSIS PATIENTS. RAD, CHEST, 1 VIEW, NON [id number] 08:14:00Reason for exam:->GENERALIZED WEAKNESS, NOT ASSOCIATED WITH EXTREMITIESFINAL REPORT INDICATION: GENERALIZED WEAKNESS, NOT ASSOCIATED WITH EXTREMITIES COMPARISON: May 30, 2016 TECHNIQUE: Single frontal view of the chest. IMPRESSION:Lungs and pleura: Mild interstitial congestion. A moderate left effusion. No right effusion.Heart and mediastinum: Normal heart size. Unremarkable mediastinal contours.Osseous structures: No acute abnormality.Other: None. Signed: JR Rowe Robert MDReport Verified Date/Time: 06/11/2018 08:14:52 Reading Location: [address] Neuro Reading Room W/PLT COUNT & AUTO [id number] 07:32:00* Test Item Value Reference Range Comments WHITE BLOOD CELL COUNT (BEAKER) (test uvyx=669) 5.3 K/ L 3.5-10.5 RED BLOOD CELL COUNT (BEAKER) (test hqiz=328) 2.89 M/ L 3.93-5.22 HEMOGLOBIN (BEAKER) (test pezn=065) 9.0 GM/DL 11.2-15.7 HEMATOCRIT (BEAKER) (test ibmb=576) 30.0 % 34.1-44.9 MEAN CORPUSCULAR VOLUME (BEAKER) (test onmk=840) 103.8 fL 79.4-94.8 MEAN CORPUSCULAR HEMOGLOBIN (BEAKER) (test idhd=084) 31.1 pg 25.6-32.2 MEAN CORPUSCULAR HEMOGLOBIN CONC (BEAKER) (test vffg=060) 30.0 GM/DL 32.2-35.5 RED CELL DISTRIBUTION WIDTH (BEAKER) (test pyfc=659) 15.8 % 11.7-14.4 PLATELET COUNT (BEAKER) (test uldx=124) 118 K/CU MM 150-450 MEAN PLATELET VOLUME (BEAKER) (test zisl=994) 10.8 fL 9.4-12.3 NUCLEATED RED BLOOD CELLS (BEAKER) (test west=827) 0 /100 WBC 0-0 NEUTROPHILS RELATIVE PERCENT (BEAKER) (test fgeo=008) 67 % LYMPHOCYTES RELATIVE PERCENT (BEAKER) (test jchp=030) 19 % MONOCYTES RELATIVE PERCENT (BEAKER) (test xxzz=737) 6 % EOSINOPHILS RELATIVE PERCENT (BEAKER) (test lslx=695) 6 % BASOPHILS RELATIVE PERCENT (BEAKER) (test fxfu=504) 1 % NEUTROPHILS ABSOLUTE COUNT (BEAKER) (test pakt=182) 3.58 K/ L 1.56-6.13 LYMPHOCYTES ABSOLUTE COUNT (BEAKER) (test qaxm=629) 1.03 K/ L 1.18-3.74 MONOCYTES ABSOLUTE COUNT (BEAKER) (test rlps=873) 0.34 K/ L 0.24-0.36 EOSINOPHILS ABSOLUTE COUNT (BEAKER) (test wqwp=205) 0.29 K/ L 0.04-0.36 BASOPHILS ABSOLUTE COUNT (BEAKER) (test guyd=392) 0.04 K/ L 0.01-0.08 IMMATURE GRANULOCYTES-RELATIVE PERCENT (BEAKER) (test tzjk=4084) 1 % 0-1 T3, [id number] 14:15:00* Test Item Value Reference Range Comments T3 FREE (BEAKER) (test room=242) 2.50 pg/mL 1.71-3.71 POCT-GLUCOSE [id number] 12:36:00* Test Item Value Reference Range Comments POC-GLUCOSE METER (BEAKER) (test vsxe=5356) 231 mg/dL 70-[address] [facility] [address] [facility] [address] EEG AWAKE AND [id number] 11:39:00Reason for exam:->confusionDATE OF EXAMINATION: 06/06/18 EEG NO: [id number] ICD-10: G40.9 CPT: 96994 CONDITION OF REPORT: This is a digital EEG study, using the standard International 10-20 System for placement of 22 electrodes, including eye movement leads, and an EKG lead. TECHNICAL SUMMARY: During the maximally awake state, a well-regulated, moderate amplitude occipital dominant rhythm of 9-10 Hz alpha is present bilat erally. More anteriorly, similar as well as faster frequencies of lower amplitud es are present, including low voltage 13-18 Hz beta in the anterior leads. Hyp erventilation was not performed. Photic stimulation elicits no epileptiform acti vity. With drowsiness, the overall background amplitudes are relatively dimini shed, while increased amounts of diffuse 5-7 Hz theta and rhythmical slowing remy rge. During sleep, POSTS, sleep spindles, K-complexes, and vertex waves are pres ent. IMPRESSION: This is a normal EEG study, capturing the full spectrum of th e awake, drowsy, and asleep states. There is no evidence for epileptiform abnorm ality, including absence of electrographic seizure. COMMENT: The absence of ep ileptiform abnormality does not necessarily preclude the clinical diagnosis of e pilepsy. Baldo Evans MD Department of Neurology [facility] e , BRAIN, WITHOUT [id number] 11:30:00Reason for exam:->weakness, confusionWhat is the patient's sedation requirement?->No SedationFINAL REPORT MR, BRAIN, WITHOUT CONTRAST INDICATION: Strokeweakness, confusion TECHNIQUE: Multiplanar, multisequence MR imaging of the brain without intravenous contrast. COMPARISON: Correlation and noncontrast head CT April 29, 2014 FINDINGS: Limited by motion artifact. There is no restricted diffusion. Moderate global volume loss is present. There is no intracranial hemorrhage. Deep white matter changes suggest leukoaraiosis. The ventricles are normal in size and configuration. The larger intracranial vascular flow-voids are p reserved. Paranasal sinuses and mastoid air cells are clear. There is normal bon e marrow signal intensity within the calvarium and skull base. 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 Signed: Jackie kenney JR, Shilpa NICEeport Verified Date/Time: 06/06/2018 11:30:38 Lance quiros Location: [facility] C013V Neuro Reading Room -GLUCOSE [id number] 09:02:00* Test Item Value Reference Range Comments POC-GLUCOSE METER (BEAKER) (test ozoc=4021) 170 mg/dL 70-[address] [facility] [address] [facility] [address] T4, [id number] 07:54:00* Test Item Value Reference Range Comments FREE T4 (BEAKER) (test gnyr=975) 1.06 ng/dL 0.70-1.48 B-TYPE NATRIURETIC FACTOR (BNP)2018-06-06 07:41:00* Test Item Value Reference Range Comments B-TYPE NATRIURETIC PEPTIDE (BEAKER) (test eaby=921) 422 pg/mL 0-100 BASIC METABOLIC [id number] 07:17:00* Test Item Value Reference Range Comments SODIUM (BEAKER) (test henv=835) 145 meq/L 136-145 POTASSIUM (BEAKER) (test jdxw=228) 4.1 meq/L 3.5-5.1 Specimen slightly hemolyzed CHLORIDE (BEAKER) (test giqh=940) 116 meq/L 98-107 CO2 (BEAKER) (test vyvk=211) 23 meq/L 22-29 BLOOD UREA NITROGEN (BEAKER) (test hbhf=983) 38 mg/dL 7-21 CREATININE (BEAKER) (test stkd=739) 1.35 mg/dL 0.57-1.25 Specimen slightly hemolyzed GLUCOSE RANDOM (BEAKER) (test zuar=338) 91 mg/dL 70-105 CALCIUM (BEAKER) (test tjhz=349) 8.3 mg/dL 8.4-10.2 EGFR (BEAKER) (test qoqk=5369) 37 mL/min/1.73 sq m ESTIMATED GFR IS NOT ACCURATE CREATININE CLEARANCE IN PREDICTING GLOMERULAR FILTRATION RATE. ESTIMATED GFR IS NOT APPLICABLE FOR DIALYSIS PATIENTS. POCT-GLUCOSE [id number] 21:13:00* Test Item Value Reference Range Comments POC-GLUCOSE METER (BEAKER) (test hoao=5120) 181 mg/dL 70-110 [address]ED AT [address] [address] BLOOD GAS, [id number] 18:30:00* Test Item Value Reference Range Comments PH ARTERIAL (BEAKER) (test cmoz=183) 7.48 7.35-7.45 PCO2 ARTERIAL (BEAKER) (test vfzf=957) 37 mmHg 35-45 PO2 ARTERIAL (BEAKER) (test yiwi=210) 57 mmHg 80-90 O2 SATURATION ARTERIAL (BEAKER) (test gdgt=951) 92.7 % 96.0-97.0 HCO3 ARTERIAL (BEAKER) (test pvmz=087) 27 mmol/L 21-29 BASE EXCESS ARTERIAL (BEAKER) (test oohx=725) 2.7 mmol/L -2.0-3.0 PATIENT TEMPERATURE (BEAKER) (test ornp=1855) 35.9 C FIO2 (BEAKER) (test dmww=2675) 21.0 % POCT-GLUCOSE [id number] 17:48:00* Test Item Value Reference Range Comments POC-GLUCOSE METER (BEAKER) (test egpw=2404) 181 mg/dL 70-110 [address]ED AT [address] [address] POCT-GLUCOSE [id number] 16:49:00* Test Item Value Reference Range Comments POC-GLUCOSE METER (BEAKER) (test fnxu=2818) 162 mg/dL 70-110 TESTED AT [address] [address] POCT-GLUCOSE [id number] 12:35:00* Test Item Value Reference Range Comments POC-GLUCOSE METER (BEAKER) (test aciy=6332) 188 mg/dL 70-110 TESTED AT [address] [address] POCT-GLUCOSE [id number] 08:37:00* Test Item Value Reference Range Comments POC-GLUCOSE METER (BEAKER) (test jjlg=9945) 140 mg/dL 70-110 TESTED AT [address] [address] B-TYPE NATRIURETIC FACTOR (BNP)2018-06-05 06:29:00* Test Item Value Reference Range Comments B-TYPE NATRIURETIC PEPTIDE (BEAKER) (test ehnc=146) 773 pg/mL 0-100 [id number] 06:29:00* Test Item Value Reference Range Comments PHOSPHORUS (BEAKER) (test yzvm=245) 3.9 mg/dL 2.3-4.7 BASIC METABOLIC [id number] 06:29:00* Test Item Value Reference Range Comments SODIUM (BEAKER) (test iphd=424) 146 meq/L 136-145 POTASSIUM (BEAKER) (test ztdn=121) 4.6 meq/L 3.5-5.1 CHLORIDE (BEAKER) (test gfwg=168) 116 meq/L 98-107 CO2 (BEAKER) (test gqth=021) 21 meq/L 22-29 BLOOD UREA NITROGEN (BEAKER) (test upkz=026) 42 mg/dL 7-21 CREATININE (BEAKER) (test fabz=363) 1.60 mg/dL 0.57-1.25 GLUCOSE RANDOM (BEAKER) (test tmay=635) 91 mg/dL 70-105 CALCIUM (BEAKER) (test ecxl=635) 8.3 mg/dL 8.4-10.2 EGFR (BEAKER) (test ifcl=3172) 30 mL/min/1.73 sq m ESTIMATED GFR IS NOT ACCURATE CREATININE CLEARANCE IN PREDICTING GLOMERULAR FILTRATION RATE. ESTIMATED GFR IS NOT APPLICABLE FOR DIALYSIS PATIENTS. CBC W/PLT COUNT & AUTO [id number] 06:10:00* Test Item Value Reference Range Comments WHITE BLOOD CELL COUNT (BEAKER) (test ikno=857) 6.4 K/ L 3.5-10.5 RED BLOOD CELL COUNT (BEAKER) (test gcal=241) 2.76 M/ L 3.93-5.22 HEMOGLOBIN (BEAKER) (test fvnu=175) 8.5 GM/DL 11.2-15.7 HEMATOCRIT (BEAKER) (test cdps=687) 28.2 % 34.1-44.9 MEAN CORPUSCULAR VOLUME (BEAKER) (test oaeg=631) 102.2 fL 79.4-94.8 MEAN CORPUSCULAR HEMOGLOBIN (BEAKER) (test sfis=404) 30.8 pg 25.6-32.2 MEAN CORPUSCULAR HEMOGLOBIN CONC (BEAKER) (test vmot=034) 30.1 GM/DL 32.2-35.5 RED CELL DISTRIBUTION WIDTH (BEAKER) (test maay=636) 15.4 % 11.7-14.4 PLATELET COUNT (BEAKER) (test hykv=593) 149 K/CU MM 150-450 MEAN PLATELET VOLUME (BEAKER) (test qjsa=268) 10.9 fL 9.4-12.3 NUCLEATED RED BLOOD CELLS (BEAKER) (test nzvm=733) 0 /100 WBC 0-0 NEUTROPHILS RELATIVE PERCENT (BEAKER) (test tqtt=253) 72 % LYMPHOCYTES RELATIVE PERCENT (BEAKER) (test admo=678) 16 % MONOCYTES RELATIVE PERCENT (BEAKER) (test lbgi=753) 8 % EOSINOPHILS RELATIVE PERCENT (BEAKER) (test bwht=709) 3 % BASOPHILS RELATIVE PERCENT (BEAKER) (test xzio=222) 0 % NEUTROPHILS ABSOLUTE COUNT (BEAKER) (test ttdr=302) 4.56 K/ L 1.56-6.13 LYMPHOCYTES ABSOLUTE COUNT (BEAKER) (test fiig=179) 1.03 K/ L 1.18-3.74 MONOCYTES ABSOLUTE COUNT (BEAKER) (test gtcs=227) 0.52 K/ L 0.24-0.36 EOSINOPHILS ABSOLUTE COUNT (BEAKER) (test fbty=808) 0.20 K/ L 0.04-0.36 BASOPHILS ABSOLUTE COUNT (BEAKER) (test tugr=505) 0.02 K/ L 0.01-0.08 IMMATURE GRANULOCYTES-RELATIVE PERCENT (BEAKER) (test ramc=9666) 1 % 0-1 POCT-GLUCOSE [id number] 21:27:00* Test Item Value Reference Range Comments POC-GLUCOSE METER (BEAKER) (test aqzd=9523) 154 mg/dL 70-110 TESTED AT [address] [address] POCT-GLUCOSE [id number] 18:05:00* Test Item Value Reference Range Comments POC-GLUCOSE METER (BEAKER) (test nxqk=5456) 144 mg/dL 70-110 TESTED AT [address] [address] POCT-GLUCOSE [id number] 13:15:00* Test Item Value Reference Range Comments POC-GLUCOSE METER (BEAKER) (test yqjj=7748) 103 mg/dL 70-110 TESTED AT [address] [address] POCT-GLUCOSE [id number] 09:58:00* Test Item Value Reference Range Comments POC-GLUCOSE METER (BEAKER) (test pnjt=9179) 118 mg/dL 70-[address] [facility] [address] [facility] [address] BASIC METABOLIC [id number] 06:13:00* Test Item Value Reference Range Comments SODIUM (BEAKER) (test soov=662) 143 meq/L 136-145 POTASSIUM (BEAKER) (test efrz=336) 5.4 meq/L 3.5-5.1 CHLORIDE (BEAKER) (test jhjq=397) 114 meq/L 98-107 CO2 (BEAKER) (test xajb=875) 22 meq/L 22-29 BLOOD UREA NITROGEN (BEAKER) (test hqsf=837) 48 mg/dL 7-21 CREATININE (BEAKER) (test kpjc=716) 1.68 mg/dL 0.57-1.25 GLUCOSE RANDOM (BEAKER) (test xrqm=226) 69 mg/dL 70-105 CALCIUM (BEAKER) (test dwgt=855) 8.2 mg/dL 8.4-10.2 EGFR (BEAKER) (test llkt=5794) 29 mL/min/1.73 sq m ESTIMATED GFR IS NOT ACCURATE CREATININE CLEARANCE IN PREDICTING GLOMERULAR FILTRATION RATE. ESTIMATED GFR IS NOT APPLICABLE FOR DIALYSIS PATIENTS. CBC W/PLT COUNT & AUTO [id number] 05:42:00* Test Item Value Reference Range Comments WHITE BLOOD CELL COUNT (BEAKER) (test wppe=843) 5.2 K/ L 3.5-10.5 RED BLOOD CELL COUNT (BEAKER) (test xmyp=228) 2.68 M/ L 3.93-5.22 HEMOGLOBIN (BEAKER) (test lsrh=609) 8.2 GM/DL 11.2-15.7 HEMATOCRIT (BEAKER) (test demu=435) 27.1 % 34.1-44.9 MEAN CORPUSCULAR VOLUME (BEAKER) (test dsxf=347) 101.1 fL 79.4-94.8 MEAN CORPUSCULAR HEMOGLOBIN (BEAKER) (test zkeh=008) 30.6 pg 25.6-32.2 MEAN CORPUSCULAR HEMOGLOBIN CONC (BEAKER) (test udfp=095) 30.3 GM/DL 32.2-35.5 RED CELL DISTRIBUTION WIDTH (BEAKER) (test qcrf=860) 15.2 % 11.7-14.4 PLATELET COUNT (BEAKER) (test seic=439) 152 K/CU MM 150-450 MEAN PLATELET VOLUME (BEAKER) (test aohe=361) 10.7 fL 9.4-12.3 NUCLEATED RED BLOOD CELLS (BEAKER) (test ftgr=515) 0 /100 WBC 0-0 NEUTROPHILS RELATIVE PERCENT (BEAKER) (test rnul=622) 65 % LYMPHOCYTES RELATIVE PERCENT (BEAKER) (test xacf=795) 23 % MONOCYTES RELATIVE PERCENT (BEAKER) (test gnkz=442) 8 % EOSINOPHILS RELATIVE PERCENT (BEAKER) (test rmcf=153) 3 % BASOPHILS RELATIVE PERCENT (BEAKER) (test kdac=638) 0 % NEUTROPHILS ABSOLUTE COUNT (BEAKER) (test rrjh=300) 3.40 K/ L 1.56-6.13 LYMPHOCYTES ABSOLUTE COUNT (BEAKER) (test jabl=901) 1.19 K/ L 1.18-3.74 MONOCYTES ABSOLUTE COUNT (BEAKER) (test qcyi=601) 0.43 K/ L 0.24-0.36 EOSINOPHILS ABSOLUTE COUNT (BEAKER) (test srir=947) 0.16 K/ L 0.04-0.36 BASOPHILS ABSOLUTE COUNT (BEAKER) (test jkcf=649) 0.02 K/ L 0.01-0.08 IMMATURE GRANULOCYTES-RELATIVE PERCENT (BEAKER) (test lach=2508) 1 % 0-1 POCT-GLUCOSE [id number] 21:38:00* Test Item Value Reference Range Comments POC-GLUCOSE METER (BEAKER) (test duou=3395) 91 mg/dL 70-110 TESTED AT [place] [id number] 18:41:00* Test Item Value Reference Range Comments POTASSIUM (BEAKER) (test mptp=624) 5.5 meq/L 3.5-5.1 POCT-GLUCOSE [id number] 18:38:00* Test Item Value Reference Range Comments POC-GLUCOSE METER (BEAKER) (test gofy=3756) 94 mg/dL 70-110 TESTED AT [place] [id number] POCT-GLUCOSE [id number] 13:29:00* Test Item Value Reference Range Comments POC-GLUCOSE METER (BEAKER) (test jqgs=8481) 81 mg/dL 70-110 TESTED AT [place] [id number] CBC W/PLT COUNT & AUTO [id number] 11:39:00* Test Item Value Reference Range Comments WHITE BLOOD CELL COUNT (BEAKER) (test bpbw=997) 3.2 K/ L 3.5-10.5 RED BLOOD CELL COUNT (BEAKER) (test mams=847) 2.59 M/ L 3.93-5.22 HEMOGLOBIN (BEAKER) (test tcnb=106) 8.3 GM/DL 11.2-15.7 HEMATOCRIT (BEAKER) (test rxuc=365) 28.0 % 34.1-44.9 MEAN CORPUSCULAR VOLUME (BEAKER) (test zlnh=207) 108.1 fL 79.4-94.8 MEAN CORPUSCULAR HEMOGLOBIN (BEAKER) (test sutj=467) 32.0 pg 25.6-32.2 MEAN CORPUSCULAR HEMOGLOBIN CONC (BEAKER) (test mvxp=501) 29.6 GM/DL 32.2-35.5 RED CELL DISTRIBUTION WIDTH (BEAKER) (test yyag=422) 15.6 % 11.7-14.4 PLATELET COUNT (BEAKER) (test hxyr=525) 94 K/CU MM 150-450 MEAN PLATELET VOLUME (BEAKER) (test mrzh=518) 11.8 fL 9.4-12.3 NUCLEATED RED BLOOD CELLS (BEAKER) (test qeos=423) 0 /100 WBC 0-0 NEUTROPHILS RELATIVE PERCENT (BEAKER) (test fleb=965) 56 % LYMPHOCYTES RELATIVE PERCENT (BEAKER) (test jdrp=655) 30 % MONOCYTES RELATIVE PERCENT (BEAKER) (test pdky=967) 10 % EOSINOPHILS RELATIVE PERCENT (BEAKER) (test rcpm=146) 4 % BASOPHILS RELATIVE PERCENT (BEAKER) (test mevu=469) 1 % NEUTROPHILS ABSOLUTE COUNT (BEAKER) (test jbcj=045) 1.78 K/ L 1.56-6.13 LYMPHOCYTES ABSOLUTE COUNT (BEAKER) (test vepa=937) 0.94 K/ L 1.18-3.74 MONOCYTES ABSOLUTE COUNT (BEAKER) (test ispv=559) 0.32 K/ L 0.24-0.36 EOSINOPHILS ABSOLUTE COUNT (BEAKER) (test eles=611) 0.11 K/ L 0.04-0.36 BASOPHILS ABSOLUTE COUNT (BEAKER) (test nakq=313) 0.02 K/ L 0.01-0.08 IMMATURE GRANULOCYTES-RELATIVE PERCENT (BEAKER) (test wina=5531) 0 % 0-1 BASIC METABOLIC [id number] 11:21:00* Test Item Value Reference Range Comments SODIUM (BEAKER) (test sumu=721) 144 meq/L 136-145 POTASSIUM (BEAKER) (test usab=750) 5.9 meq/L 3.5-5.1 Specimen moderately hemolyzed CHLORIDE (BEAKER) (test fmzr=944) 114 meq/L 98-107 CO2 (BEAKER) (test mazi=363) 24 meq/L 22-29 BLOOD UREA NITROGEN (BEAKER) (test mxlw=999) 51 mg/dL 7-21 CREATININE (BEAKER) (test zzox=349) 1.79 mg/dL 0.57-1.25 Specimen moderately hemolyzed GLUCOSE RANDOM (BEAKER) (test haob=131) 66 mg/dL 70-105 CALCIUM (BEAKER) (test lgog=630) 8.4 mg/dL 8.4-10.2 EGFR (BEAKER) (test iesy=0237) 27 mL/min/1.73 sq m ESTIMATED GFR IS NOT ACCURATE CREATININE CLEARANCE IN PREDICTING GLOMERULAR FILTRATION RATE. ESTIMATED GFR IS NOT APPLICABLE FOR DIALYSIS PATIENTS. POCT-GLUCOSE [id number] 07:55:00* Test Item Value Reference Range Comments POC-GLUCOSE METER (BEAKER) (test kphj=2828) 82 mg/dL 70-[address] [facility] [address] [facility] [address] POCT-GLUCOSE [id number] 20:56:00* Test Item Value Reference Range Comments POC-GLUCOSE METER (BEAKER) (test flzr=5420) 91 mg/dL 70-[address] [facility] [address] [facility] [address] [id number] 18:08:00* Test Item Value Reference Range Comments AMMONIA (BEAKER) (test unvi=602) 38 mol/L 18-72 HEMOGLOBIN AND [id number] 17:59:00* Test Item Value Reference Range Comments HEMOGLOBIN (BEAKER) (test cepe=409) 8.3 GM/DL 11.2-15.7 HEMATOCRIT (BEAKER) (test cmwe=658) 26.8 % 34.1-44.9 POCT-GLUCOSE [id number] 16:58:00* Test Item Value Reference Range Comments POC-GLUCOSE METER (BEAKER) (test pxqc=3731) 86 mg/dL 70-110 TESTED AT [place] [id number] [facility] [address] URINALYSIS W/ REFLEX URINE [id number] 15:36:00* Test Item Value Reference Range Comments COLOR (BEAKER) (test nwab=319) Yellow CLARITY (BEAKER) (test vxow=165) Hazy SPECIFIC GRAVITY UA (BEAKER) (test mmax=036) 1.013 1.001-1.035 PH UA (BEAKER) (test kgvx=416) 5.0 5.0-8.0 PROTEIN UA (BEAKER) (test gfim=517) 30 mg/dL Negative GLUCOSE UA (BEAKER) (test wxnt=543) Negative Negative KETONES UA (BEAKER) (test agyt=982) Negative Negative BILIRUBIN UA (BEAKER) (test agfm=228) Negative Negative BLOOD UA (BEAKER) (test boku=645) Large Negative NITRITE UA (BEAKER) (test mcja=130) Negative Negative LEUKOCYTE ESTERASE UA (BEAKER) (test iecp=071) Large Negative UROBILINOGEN UA (BEAKER) (test eivt=377) 0.2 mg/dL 0.2-1.0 RBC UA (BEAKER) (test ttio=372) 327 /HPF WBC UA (BEAKER) (test xhif=828) 81 /HPF SQUAMOUS EPITHELIAL (BEAKER) (test iivp=183) 4 /HPF HYALINE CASTS (BEAKER) (test pnqu=273) 6 /LPF SOURCE(BEAKER) (test fjmy=1393) [id number] 11:50:00* Test Item Value Reference Range Comments POTASSIUM (BEAKER) (test kico=054) 5.5 meq/L 3.5-5.1 POCT-GLUCOSE [id number] 11:48:00* Test Item Value Reference Range Comments POC-GLUCOSE METER (BEAKER) (test mwjm=9330) 94 mg/dL 70-[address] [facility] [address] [facility] [address] CBC W/PLT COUNT & AUTO [id number] 11:29:00* Test Item Value Reference Range Comments WHITE BLOOD CELL COUNT (BEAKER) (test qvfd=496) 4.8 K/ L 3.5-10.5 RED BLOOD CELL COUNT (BEAKER) (test dddy=287) 2.63 M/ L 3.93-5.22 HEMOGLOBIN (BEAKER) (test ahhr=831) 8.2 GM/DL 11.2-15.7 HEMATOCRIT (BEAKER) (test ssoe=514) 26.2 % 34.1-44.9 MEAN CORPUSCULAR VOLUME (BEAKER) (test geki=031) 99.6 fL 79.4-94.8 MEAN CORPUSCULAR HEMOGLOBIN (BEAKER) (test jvgm=412) 31.2 pg 25.6-32.2 MEAN CORPUSCULAR HEMOGLOBIN CONC (BEAKER) (test dvdo=916) 31.3 GM/DL 32.2-35.5 RED CELL DISTRIBUTION WIDTH (BEAKER) (test pzrz=688) 15.3 % 11.7-14.4 PLATELET COUNT (BEAKER) (test vlot=562) 145 K/CU MM 150-450 MEAN PLATELET VOLUME (BEAKER) (test blar=925) 10.7 fL 9.4-12.3 NUCLEATED RED BLOOD CELLS (BEAKER) (test juqb=039) 0 /100 WBC 0-0 NEUTROPHILS RELATIVE PERCENT (BEAKER) (test hzzv=842) 66 % LYMPHOCYTES RELATIVE PERCENT (BEAKER) (test rzpi=804) 21 % MONOCYTES RELATIVE PERCENT (BEAKER) (test omha=249) 7 % EOSINOPHILS RELATIVE PERCENT (BEAKER) (test fusv=056) 5 % BASOPHILS RELATIVE PERCENT (BEAKER) (test dyun=751) 1 % NEUTROPHILS ABSOLUTE COUNT (BEAKER) (test gqfl=515) 3.19 K/ L 1.56-6.13 LYMPHOCYTES ABSOLUTE COUNT (BEAKER) (test poyn=858) 1.02 K/ L 1.18-3.74 MONOCYTES ABSOLUTE COUNT (BEAKER) (test rqxg=463) 0.33 K/ L 0.24-0.36 EOSINOPHILS ABSOLUTE COUNT (BEAKER) (test leil=406) 0.22 K/ L 0.04-0.36 BASOPHILS ABSOLUTE COUNT (BEAKER) (test jvva=203) 0.03 K/ L 0.01-0.08 IMMATURE GRANULOCYTES-RELATIVE PERCENT (BEAKER) (test fegi=6506) 0 % 0-1 POCT-GLUCOSE [id number] 07:56:00* Test Item Value Reference Range Comments POC-GLUCOSE METER (BEAKER) (test awew=1541) 88 mg/dL 70-[address] [facility] [address] [facility] [address] [id number] 06:43:00* Test Item Value Reference Range Comments THYROID STIMULATING HORMONE (BEAKER) (test nzzq=567) 9.24 uIU/mL 0.35-4.94 BASIC METABOLIC [id number] 06:32:00* Test Item Value Reference Range Comments SODIUM (BEAKER) (test xhgi=259) 142 meq/L 136-145 POTASSIUM (BEAKER) (test nths=100) 5.7 meq/L 3.5-5.1 Specimen slightly hemolyzed CHLORIDE (BEAKER) (test hfnb=395) 111 meq/L 98-107 CO2 (BEAKER) (test bpvm=604) 24 meq/L 22-29 BLOOD UREA NITROGEN (BEAKER) (test oxoe=375) 52 mg/dL 7-21 CREATININE (BEAKER) (test vgjl=787) 1.37 mg/dL 0.57-1.25 Specimen slightly hemolyzed GLUCOSE RANDOM (BEAKER) (test iyip=636) 75 mg/dL 70-105 CALCIUM (BEAKER) (test mmdn=455) 8.6 mg/dL 8.4-10.2 EGFR (BEAKER) (test mxwr=9673) 36 mL/min/1.73 sq m ESTIMATED GFR IS NOT ACCURATE CREATININE CLEARANCE IN PREDICTING GLOMERULAR FILTRATION RATE. ESTIMATED GFR IS NOT APPLICABLE FOR DIALYSIS PATIENTS. HEPATIC FUNCTION [id number] 06:32:00* Test Item Value Reference Range Comments TOTAL PROTEIN (BEAKER) (test kher=462) 5.9 gm/dL 6.0-8.3 Specimen slightly hemolyzed ALBUMIN (BEAKER) (test udky=0621) 3.0 g/dL 3.5-5.0 Specimen slightly hemolyzed BILIRUBIN TOTAL (BEAKER) (test fhpd=171) 0.3 mg/dL 0.2-1.2 Specimen slightly hemolyzed BILIRUBIN DIRECT (BEAKER) (test krth=843) 0.1 mg/dL 0.1-0.5 Specimen slightly hemolyzed ALKALINE PHOSPHATASE (BEAKER) (test odus=043) 86 U/L 40-150 AST (SGOT) (BEAKER) (test gtgh=790) 29 U/L 5-34 Specimen slightly hemolyzed ALT (SGPT) (BEAKER) (test itvy=209) 21 U/L 6-55 Specimen slightly hemolyzed B-TYPE NATRIURETIC FACTOR (BNP)2018-06-02 06:17:00* Test Item Value Reference Range Comments B-TYPE NATRIURETIC PEPTIDE (BEAKER) (test kdfr=298) 188 pg/mL 0-100 POCT-GLUCOSE [id number] 05:23:00* Test Item Value Reference Range Comments POC-GLUCOSE METER (BEAKER) (test nbfb=0296) 90 mg/dL 70-110 TESTED AT [address] [address] POCT-GLUCOSE [id number] 21:04:00* Test Item Value Reference Range Comments POC-GLUCOSE METER (BEAKER) (test guvd=9961) 247 mg/dL 70-110 TESTED AT [address] [address] TROPONIN [id number] 17:42:00* Test Item Value Reference Range Comments TROPONIN I (BEAKER) (test nriq=628) < ng/mL 0.00-0.03 Troponin I (TnI) levels must be interpreted in the context of the presenting sym ptoms and the clinical findings. Elevated TnI levels indicate myocardial damage, but are not specific for ischemic heart disease. Elevated TnI levels are seen in patients with other cardiac conditions (including myocarditis and congestive h eart failure), and slight TnI elevations occur in patients with other conditions , including sepsis, renal failure, acidosis, acute neurological disease, and per sistent tachyarrhythmia.POCT-GLUCOSE [id number] 17:33:00* Test Item Value Reference Range Comments POC-GLUCOSE METER (BEAKER) (test gwnm=4132) 132 mg/dL 70-110 TESTED AT [address] [address] CXR 1 VEW - [id number] 10:44:00 [place] [address] Patient Name: LUCAS ALBERTS MR #: [id number] : 1930 Age/Sex: 87/F Req #: [id number] Adm Physician: Ordered by: KOURTNEY MOHAMUD MD Report #: [id number] Location: [facility] Room/Bed: Procedure: [id number] HOPD /CXR 1 VEW - HOPD Exam Date: 06/01/18 Exam Time: 102 0 REPORT STATUS: Signed PROCEDUR E: CXR 1 VEW - HOPD COMPARISON: None. INDICATIONS: ams, low bl ood sugar FINDINGS: Lines/tubes: None Lungs: Moderate inflation of the lungs. Mild patchy left basilar opacity, likely atelectasis. No evide nce of lobar consolidation or pulmonary edema. Pleura: No evidence of pleural effusion or pneumothorax. Heart and mediastinum: The cardiomedias tinal silhouette is unremarkable. There is atherosclerotic calcification of t he aortic arch. Bones: No acute bony findings. CONCLUSION: No acute radiographic abnormality. Dictated by: MARY KATE MILNER M.D. on 12/2017 at 10:44 Electronically approved by: MARY KATE MILNER M.D. on 018 at 10:44 Dictated By: MARY KATE MILNER MD 1044 Transcribed By: ABE on 06/01/18 1044 C OPY TO: KOURTNEY MOHAMUD MD CT BRAIN [id number] 10:13:00 [place] [address] Patient Name: LUCAS ALBERTS MR #: [id number] : 1930 Age/Sex: 87/F Req #: [id number] Adm Physician: Ordered by: KOURTNEY MOHAMUD MD Report #: [id number] Location: [facility] Room/Bed: Procedure: [id number] HOPD /CT BRAIN WO-HOPD Exam Date: 06/01/18 Exam Time: 093 0 REPORT STATUS: Signed CT BRAIN WO-HOPD HISTORY: Altered mental status COMPARISON: None. Techni que: Noncontrast axial scans were obtained from skull base to the vertex. Co jeffery and sagittal reconstructions obtained from the axial data. One or more of the following dose reduction techniques were used: Automated exposure contr ol, adjustment of the mA and/or kV according to patient size, and/or utilizati on of iterative reconstruction technique. DISCUSSION: Scalp/Skull: U nremarkable. Brain sulci: Prominent, especially along the anterior temporal po les. Ventricles: Compensatory dilatation. Extra-axial spaces: No masses or f luid collections. Carotid siphon and vertebral artery calcifications are prese nt. Parenchyma: Mild bilateral deep white matter hypodensity is likely c hronic microvascular ischemic change. Otherwise, no masses, hemorrhage, or large vascular territory acute infarct. Dural sinuses: No abnormal densiti es. Sellar/Suprasellar region: Intact. Skull base: Intact. Incidental find ings: Both ocular lenses are thinned. Mild bilateral maxillary sinus mucosal t hickening is present. Nonspecific fluid layers in the left maxillary sinus; co rrelate for acute sinusitis. IMPRESSION: 1. No acute intracranial abnorm alities. 2. Mild supratentorial chronic microvascular ischemic change. 3. Generalized cerebral volume loss with slight temporal predominance. Sig baldemar by: Dr. Kedar Bonds M.D. on 06/01/2018 10:20 AM Dictated By: DANIELA BONDS MD 1020 Transcribed By: TREY on 06/01/18 1020 COPY TO: KOURTNEY MOHAMUD MD
--- NOTE | 2018-09-13 18:19 | Diagnostic Imaging Report ---
CT BRAIN WO HISTORY: Altered mental status COMPARISON: Head CT 06/01/2018 Technique: Noncontrast axial scans were obtained from skull base to the vertex. Coronal and sagittal reconstructions obtained from the axial data. One or more of the following dose reduction techniques were used: Automated exposure control, adjustment of the mA and/or kV according to patient size, and/or utilization of iterative reconstruction technique. DISCUSSION: Scalp/Skull: Unremarkable. Brain sulci: Mildly prominent, especially along the anterior temporal poles. Ventricles: Compensatory dilatation. Extra-axial spaces: No masses or fluid collections. Carotid and vertebral artery calcifications are present. Parenchyma: Mild bilateral deep white matter hypodensity is likely chronic microvascular ischemic change. Otherwise, no masses, hemorrhage, or large vascular territory acute infarct. Dural sinuses: No abnormal densities. Sellar/Suprasellar region: Intact. Skull base: Intact. Incidental findings: Both ocular lenses are thinned. IMPRESSION: 1. No acute intracranial abnormalities. 2. Mild supratentorial chronic microvascular ischemic change. 3. Generalized cerebral volume loss with slight temporal lobe predominance. Signed by: Dr. Kedar Bonds M.D. on 09/13/2018 6:15 PM
--- NOTE | 2018-09-13 18:27 | Diagnostic Imaging Report ---
A single frontal view of the chest. HISTORY: Altered mental status COMPARISON: Chest radiograph June 26, 2000 DISCUSSION: Portable technique, limits sensitivity of the exam. Soft tissue attenuation partially limits sensitivity of the exam. Left anterior oblique rotation. Overlying artifacts. Tubes/Lines: None Lungs and pleura: Low lung volumes result in bibasilar vascular crowding, accentuation of the pulmonary interstitial markings, central pulmonary vasculature, and the cardiac silhouette. Allowing for these limitations, the findings are as follows: Diffusely increased interstitial and airspace opacities, right greater than left. Blunting of the left greater than right costophrenic angles with adjacent atelectasis. Heart and mediastinum: Enlarged cardiac silhouette and central pulmonary vasculature. Bones and soft tissues: Findings compatible with chronic full-thickness right rotator cuff tear. IMPRESSION: Volume overload resulting in central pulmonary vascular congestion, mild to moderate pulmonary edema, left greater than right pleural effusions with adjacent atelectasis. Signed by: Dr. Wily Del Valle D.O., M.M.M. on 09/13/2018 6:23 PM
[2018-09-13] MEDS ORDERED: SODIUM CHLORIDE 0.9% 1000ML 1,000 ML IV ONE (18:30)
--- NOTE | 2018-09-13 18:31 | NUR ---
Dr. Parikh at bedside.
[2018-09-13 19:30] LABS: BASOPHILS % 0.6 % (0.0-1.0); EOSINOPHILS # (AUTO) 0.1 (0.0-0.4); EOSINOPHILS % 3.4 % (0.0-6.0); HEMATOCRIT 28.5 % (34.2-44.1); HEMOGLOBIN 8.9 g/dL (12.0-16.0); LYMPHOCYTES # (AUTO) 0.6 (1.0-3.2); LYMPHOCYTES % 15.7 % (18.0-39.1); MEAN CORPUSCULAR HGB CONC 31.2 g/dL (31-35); MONOCYTES # (AUTO) 0.5 (0.2-0.8); MONOCYTES % 12.9 % (4.4-11.3); NEUTROPHILS # (AUTO) 2.4 (2.1-6.9); NEUTROPHILS % 67.1 % (38.7-80.0); PLATELET COUNT 180 x10e3/uL (140-360); RED BLOOD COUNT 2.97 x10e6/uL (3.6-5.1); RED CELL DISTRIBUTION WIDTH 15.7 % (11.7-14.4)
[2018-09-13 19:44] LABS: INR 0.97; PROTHROMBIN TIME 13.4 seconds (11.9-14.5)
[2018-09-13 19:45] LABS: PARTIAL THROMBOPLASTIN TIME 45.8 seconds (23.8-35.5)
[2018-09-13 19:53] LABS: ALBUMIN 2.9 g/dL (3.5-5.0); ANION GAP 11.7 mmol/L (8-16); CALCIUM 8.5 mg/dL (8.4-10.2); CREATININE, SERUM 1.38 mg/dL (0.57-1.11); POTASSIUM 3.7 mmol/L (3.5-5.1)
[2018-09-13 20:08] LABS: MAGNESIUM 2.1 MG/DL (1.3-2.1); PHOSPHORUS 4.6 MG/DL (2.3-4.7)
[2018-09-13 20:31] LABS: FREE THYROXINE INDEX 2.6321 (1.4-3.8); THYROID STIMULATING HORMONE 4.795 uIU/mL (0.350-4.940)
[2018-09-13] MEDS ORDERED: SODIUM CHLORIDE 0.9% 1000ML 1,000 ML ONE (22:32)
[2018-09-13 22:52] LABS: ABG HCO3 29 mmol/L (23-28); ABG PCO2 47 mmHg (41-51); ABG PH 7.39 (7.31-7.41); ABG PO2 106 mmHg (80-105)
[2018-09-13] MEDS ORDERED: BUMETANIDE1 MG PO (23:30)
[2018-09-13] MEDS ORDERED: LEVOTHYROXINE25 MCG PO (23:31)
[2018-09-13] MEDS ORDERED: HYDRALAZINE HCL10 MG PO (23:31)
[2018-09-13] MEDS ORDERED: MUPIROCIN22 GM TP (23:32)
[2018-09-13] MEDS ORDERED: TRAVATAN Z5 ML (23:33)
[2018-09-13] MEDS ORDERED: NYSTOP60 GM TP (23:33)
[2018-09-13 23:36] LABS: AMPHETAMINES SCREEN,URINE NEGATIVE (NEGATIVE); PHENCYCLIDINE SCREEN,URINE NEGATIVE (NEGATIVE)
[2018-09-13 23:37] LABS: BENZODIAZEPINES SCREEN,URINE NEGATIVE (NEGATIVE)
[2018-09-13 23:38] LABS: CLARITY,URINE CLOUDY (CLEAR); COLOR,URINE YELLOW (YELLOW)
[2018-09-13 23:39] LABS: BACTERIA,URINE MANY /HPF; BILIRUBIN,URINE NEGATIVE (NEGATIVE); KETONES,URINE NEGATIVE (NEGATIVE); LEUKOCYTE ESTERASE ,URINE NEGATIVE (NEGATIVE); NITRITE,URINE NEGATIVE (NEGATIVE); PROTEIN,URINE DIPSTICK 2+ (NEGATIVE); URINE UROBILINOGEN 0.2 mg/dL (0.2 - 1)
[2018-09-13 23:40] LABS: EPITHELIAL CELLS,URINE FEW /LPF
--- NOTE | 2018-09-13 23:55 | NUR ---
Walking rounds completed with Ryann MURPHY. Pt is in no acute distress at this time.
--- NOTE | 2018-09-13 23:55 | NUR ---
RECEIVED REPORT FROM JEFFREY BECKFORD DAY SHIFT NURSE.
[2018-09-14] MEDS ORDERED: CEFTRIAXONE SOD 1 GM/NS 50 ML 50 ML IV SCH (00:15)
[2018-09-14] MEDS ORDERED: DEXTROSE 50% SYRINGE 50 ML IV PRN (00:30)
--- OUTSIDE RECORDS SUMMARY | 2018-09-14 00:34 | XMS REPORT | Clinical Summary ---
Author Author [facility] Organization [facility] Address Unknown Phone Unavailable Care Team Providers Care Space Sciences Director Name Role Phone Iam Levy PCP Unavailable [...] 06/01/2018 Discontinued vitamins Take 1 tablet 0 A,C,F-qnbn-wilkoj by mouth 2 (PRESERVISION AREDS) (two) times [id number],[id number] daily. [id number] Cap 06/01/2018 Discontinued famotidine (PEPCID) 20 MG [...] 06/01/2018 Hospital Cardiology - Encounter 06/06/2018 after 09/13/2017 Social History Date Tobacco Use Types Packs/Day [...] Taken Vital Sign Reading 06/11/2018 10:18 AM INTERNET SYSTEMS ADMINISTRATOR Blood Pressure 158/62 06/11/2018 8:48 AM INTERNET SYSTEMS ADMINISTRATOR Pulse 63 06/11/2018 7:08 AM INTERNET SYSTEMS ADMINISTRATOR Temperature 36.7 C (98 F) 06/11/2018 8:48 AM INTERNET SYSTEMS ADMINISTRATOR Respiratory Rate 18 06/11/2018 10:18 AM INTERNET SYSTEMS ADMINISTRATOR Oxygen Saturation 98% - Inhaled Oxygen - Concentration 06/11/2018 7:08 AM INTERNET SYSTEMS ADMINISTRATOR Weight 81.6 kg (180 lb) 06/11/2018 7:08 AM INTERNET SYSTEMS ADMINISTRATOR Height 157.5 cm (5' 2") 06/11/2018 7:08 AM INTERNET SYSTEMS ADMINISTRATOR Body Mass Index 32.92 Plan of Treatment Not on file Procedures Comments Procedure Name Priority Date/Time Associated Diagnosis REPORT OF PROCEDURE - 08/24/2018 ENDOSCOPY SCAN 11:04 AM INTERNET SYSTEMS ADMINISTRATOR REPORT OF PROCEDURE - 06/13/2018 ENDOSCOPY SCAN 7:20 AM INTERNET SYSTEMS ADMINISTRATOR RHYTHM STRIP - SCAN 06/13/2018 7:20 AM INTERNET SYSTEMS ADMINISTRATOR XR CHEST 1 VIEW STAT 06/11/2018 PORTABLE/BEDSIDE 8:05 AM INTERNET SYSTEMS ADMINISTRATOR B-TYPE NATRIURETIC FACTOR STAT 06/11/2018 (BNP) 7:48 AM INTERNET SYSTEMS ADMINISTRATOR TROPONIN I STAT 06/11/2018 7:48 AM INTERNET SYSTEMS ADMINISTRATOR MAGNESIUM STAT 06/11/2018 7:48 AM INTERNET SYSTEMS ADMINISTRATOR BASIC METABOLIC PANEL (7) STAT 06/11/2018 7:48 AM INTERNET SYSTEMS ADMINISTRATOR ED ECG INTERPRETATION Routine 06/11/2018 7:33 AM INTERNET SYSTEMS ADMINISTRATOR CBC W/PLT COUNT & AUTO STAT 06/11/2018 DIFFERENTIAL 7:23 AM INTERNET SYSTEMS ADMINISTRATOR CBC W/PLT COUNT & AUTO STAT 06/11/2018 DIFFERENTIAL 7:23 AM INTERNET SYSTEMS ADMINISTRATOR ECG 12-LEAD STAT 06/11/2018 7:15 AM INTERNET SYSTEMS ADMINISTRATOR POCT-GLUCOSE METER Routine 06/06/2018 12:26 PM INTERNET SYSTEMS ADMINISTRATOR MR BRAIN WITHOUT IV STAT 06/06/2018 CONTRAST 11:26 AM INTERNET SYSTEMS ADMINISTRATOR EEG AWAKE AND DROWSY BEAR 06/06/2018 10:24 AM INTERNET SYSTEMS ADMINISTRATOR POCT-GLUCOSE METER Routine 06/06/2018 8:58 AM INTERNET SYSTEMS ADMINISTRATOR B-TYPE NATRIURETIC FACTOR Routine 06/06/2018 (BNP) 7:04 AM INTERNET SYSTEMS ADMINISTRATOR T3, FREE Routine 06/06/2018 6:54 AM INTERNET SYSTEMS ADMINISTRATOR T4, FREE Routine 06/06/2018 6:54 AM INTERNET SYSTEMS ADMINISTRATOR BASIC METABOLIC PANEL (7) Routine 06/06/2018 6:54 AM INTERNET SYSTEMS ADMINISTRATOR ECG 12-LEAD Routine 06/06/2018 6:27 AM INTERNET SYSTEMS ADMINISTRATOR POCT-GLUCOSE METER Routine 06/05/2018 9:11 PM INTERNET SYSTEMS ADMINISTRATOR BLOOD GAS, ARTERIAL STAT 06/05/2018 6:20 PM INTERNET SYSTEMS ADMINISTRATOR POCT-GLUCOSE METER Routine 06/05/2018 5:21 PM INTERNET SYSTEMS ADMINISTRATOR POCT-GLUCOSE METER Routine 06/05/2018 4:46 PM INTERNET SYSTEMS ADMINISTRATOR POCT-GLUCOSE METER Routine 06/05/2018 12:20 PM INTERNET SYSTEMS ADMINISTRATOR POCT-GLUCOSE METER Routine 06/05/2018 8:35 AM INTERNET SYSTEMS ADMINISTRATOR CBC W/PLT COUNT & AUTO Routine 06/05/2018 DIFFERENTIAL 5:49 AM INTERNET SYSTEMS ADMINISTRATOR PHOSPHORUS Routine 06/05/2018 5:49 AM INTERNET SYSTEMS ADMINISTRATOR B-TYPE NATRIURETIC FACTOR Routine 06/05/2018 (BNP) 5:49 AM INTERNET SYSTEMS ADMINISTRATOR CBC W/PLT COUNT & AUTO Routine 06/05/2018 DIFFERENTIAL 5:49 AM INTERNET SYSTEMS ADMINISTRATOR BASIC METABOLIC PANEL (7) Routine 06/05/2018 5:49 AM INTERNET SYSTEMS ADMINISTRATOR POCT-GLUCOSE METER Routine 06/04/2018 9:17 PM INTERNET SYSTEMS ADMINISTRATOR POCT-GLUCOSE METER Routine 06/04/2018 6:03 PM INTERNET SYSTEMS ADMINISTRATOR POCT-GLUCOSE METER Routine 06/04/2018 1:00 PM INTERNET SYSTEMS ADMINISTRATOR POCT-GLUCOSE METER Routine 06/04/2018 9:40 AM INTERNET SYSTEMS ADMINISTRATOR CBC W/PLT COUNT & AUTO Routine 06/04/2018 DIFFERENTIAL 5:18 AM INTERNET SYSTEMS ADMINISTRATOR CBC W/PLT COUNT & AUTO Routine 06/04/2018 DIFFERENTIAL 5:18 AM INTERNET SYSTEMS ADMINISTRATOR BASIC METABOLIC PANEL (7) Routine 06/04/2018 5:18 AM INTERNET SYSTEMS ADMINISTRATOR POCT-GLUCOSE METER Routine 06/03/2018 9:36 PM INTERNET SYSTEMS ADMINISTRATOR POCT-GLUCOSE METER Routine 06/03/2018 6:36 PM INTERNET SYSTEMS ADMINISTRATOR POTASSIUM Routine 06/03/2018 6:08 PM INTERNET SYSTEMS ADMINISTRATOR POCT-GLUCOSE METER Routine 06/03/2018 1:27 PM INTERNET SYSTEMS ADMINISTRATOR CBC W/PLT COUNT & AUTO Routine 06/03/2018 DIFFERENTIAL 10:42 AM INTERNET SYSTEMS ADMINISTRATOR CBC W/PLT COUNT & AUTO Routine 06/03/2018 DIFFERENTIAL 10:42 AM INTERNET SYSTEMS ADMINISTRATOR BASIC METABOLIC PANEL (7) Routine 06/03/2018 10:42 AM INTERNET SYSTEMS ADMINISTRATOR POCT-GLUCOSE METER Routine 06/03/2018 7:53 AM INTERNET SYSTEMS ADMINISTRATOR POCT-GLUCOSE METER Routine 06/02/2018 8:51 PM INTERNET SYSTEMS ADMINISTRATOR HEMOGLOBIN AND HEMATOCRIT Routine 06/02/2018 5:51 PM INTERNET SYSTEMS ADMINISTRATOR AMMONIA Routine 06/02/2018 5:51 PM INTERNET SYSTEMS ADMINISTRATOR POCT-GLUCOSE METER Routine 06/02/2018 4:51 PM INTERNET SYSTEMS ADMINISTRATOR URINALYSIS W/ REFLEX Routine 06/02/2018 URINE CULTURE 3:15 PM INTERNET SYSTEMS ADMINISTRATOR URINE CULTURE Routine 06/02/2018 3:15 PM INTERNET SYSTEMS ADMINISTRATOR POCT-GLUCOSE METER Routine 06/02/2018 11:37 AM INTERNET SYSTEMS ADMINISTRATOR CBC W/PLT COUNT & AUTO Routine 06/02/2018 DIFFERENTIAL 11:07 AM INTERNET SYSTEMS ADMINISTRATOR CBC W/PLT COUNT & AUTO Routine 06/02/2018 DIFFERENTIAL 11:07 AM INTERNET SYSTEMS ADMINISTRATOR POTASSIUM Routine 06/02/2018 11:07 AM INTERNET SYSTEMS ADMINISTRATOR POCT-GLUCOSE METER Routine 06/02/2018 7:54 AM INTERNET SYSTEMS ADMINISTRATOR TSH Routine 06/02/2018 5:34 AM INTERNET SYSTEMS ADMINISTRATOR B-TYPE NATRIURETIC FACTOR Routine 06/02/2018 (BNP) 5:34 AM INTERNET SYSTEMS ADMINISTRATOR HEPATIC FUNCTION PANEL Routine 06/02/2018 5:34 AM INTERNET SYSTEMS ADMINISTRATOR BASIC METABOLIC PANEL (7) Routine 06/02/2018 5:34 AM INTERNET SYSTEMS ADMINISTRATOR POCT-GLUCOSE METER Routine 06/02/2018 5:22 AM INTERNET SYSTEMS ADMINISTRATOR ECG 12-LEAD Routine 06/02/2018 1:45 AM INTERNET SYSTEMS ADMINISTRATOR ECG 12-LEAD Routine 06/02/2018 1:45 AM INTERNET SYSTEMS ADMINISTRATOR Procedure Note - Interface, External Ris In - 06/02/2018 1:50 AM INTERNET SYSTEMS ADMINISTRATOR Ventricula r Rate 65 BPM Atrial Rate 65 BPM P-R Interval 212 ms QRS Duration 94 ms Q-T Interval 404 ms QTC Calculatio n(Bazett) 420 ms P Sidney 47 degrees R Sidney -22 degrees T Sidney 83 degrees Sinus rhythm with 1st degree A-V block Low voltage QRS Borderline ECG When compared with ECG of 8 16:27, No significan t change was found POCT-GLUCOSE METER Routine 06/01/2018 8:47 PM INTERNET SYSTEMS ADMINISTRATOR VENOUS DOPPLER LEGS BEAR 06/01/2018 BILATERAL 8:32 PM INTERNET SYSTEMS ADMINISTRATOR POCT-GLUCOSE METER Routine 06/01/2018 5:32 PM INTERNET SYSTEMS ADMINISTRATOR TROPONIN I STAT 06/01/2018 5:03 PM INTERNET SYSTEMS ADMINISTRATOR ECG 12-LEAD Routine 06/01/2018 4:27 PM INTERNET SYSTEMS ADMINISTRATOR ECG 12-LEAD STAT 06/01/2018 4:26 PM INTERNET SYSTEMS ADMINISTRATOR after 09/13/2017 Results * EKG-SCANNED (08/24/2018 11:04 AM INTERNET SYSTEMS ADMINISTRATOR) Only the most recent of 2 results within the time period is included. Narrative Performed At * RHYTHM STRIP - SCAN (06/13/2018 7:20 AM INTERNET SYSTEMS ADMINISTRATOR) Narrative Performed At * XR chest 1 view portable / bedside (06/11/2018 8:05 AM INTERNET SYSTEMS ADMINISTRATOR) Narrative Performed At FINAL REPORT GE RIS [...] MD Report Verified Date/Time:06/11/2018 08:14:52 Reading Location: [address] Neuro Reading Room Procedure Note Interface, External Ris In - 06/11/2018 8:17 AM INTERNET SYSTEMS ADMINISTRATOR FINAL REPORT INDICATION: GENERALIZED WEAKNESS, NOT ASSOCIATED WITH EXTREMITIES COMPARISON: May 30, 2016 TECHNIQUE: Single frontal view of the chest. IMPRESSION: Lungs and pleura: Mild interstitial congestion. A moderate left effusion. No right effusion. Heart and mediastinum: Normal heart size. Unremarkable mediastinal contours. Osseous structures: No acute abnormality. Other: None. Signed: JR Rowe Robert MD Report Verified Date/Time: 06/11/2018 08:14:52 Reading Location: [address] Neuro Reading Room Performing Organization Address City/State/Zipcode Phone Number RIS * Troponin I (06/11/2018 7:48 AM INTERNET SYSTEMS ADMINISTRATOR) Only the most recent of 2 results within the time period is included. Troponin I 0.01 0.00 - 0.03 ng/mL [facility] Specimen Blood - Arm, Right Narrative Performed At Troponin I (TnI) levels must be interpreted in the context of the presenting [facility] symptoms and the clinical findings. Elevated TnI levels indicate myocardial [facility] damage, but are not specific for ischemic heart disease. Elevated TnI levels are seen in patients with other cardiac conditions (including myocarditis and congestive heart failure), and slight TnI elevations occur in patients with other conditions, including sepsis, renal failure, acidosis, acute neurological disease, and persistent tachyarrhythmia. Performing Organization Address City/[facility] [place] [address] [phone] [address] * B-type Natriuretic Factor (BNP) (06/11/2018 7:48 AM INTERNET SYSTEMS ADMINISTRATOR) Only the most recent of 4 results within the time period is included. BNP 302 (H) 0 - 100 pg/mL [facility] Specimen Blood - Arm, Right Performing Organization Address City/[facility] [place] [address] [phone] [address] * Magnesium (06/11/2018 7:48 AM INTERNET SYSTEMS ADMINISTRATOR) Magnesium 2.8 (H)Comment: Specimen 1.6 - 2.6 mg/dL [facility] Specimen Blood - Arm, Right Performing Organization Address [facility] [place] [place] [address] [phone] [place] [address] * Basic Metabolic Panel (06/11/2018 7:48 AM INTERNET SYSTEMS ADMINISTRATOR) Only the most recent of 6 results within the time period is included. Sodium 144 136 - 145 meq/L [facility] Potassium 4.8Comment: Specimen 3.5 - 5.1 meq/L [facility] moderately hemolyzed [facility] Chloride 114 (H) 98 - 107 meq/L [facility] CO2 23 22 - 29 meq/L [facility] BUN 31 (H) 7 - 21 mg/dL [facility] Creatinine 1.30 (H)Comment: Specimen 0.57 - 1.25 mg/dL [facility] moderately hemolyzed [facility] Glucose 121 (H) 70 - 105 mg/dL [facility] Calcium 8.2 (L) 8.4 - 10.2 mg/dL [facility] EGFR 39Comment: ESTIMATED GFR IS mL/min/1.[address] [facility] NOT ACCURATE CREATININE [facility] CLEARANCE IN PREDICTING GLOMERULAR FILTRATION RATE. ESTIMATED GFR IS NOT APPLICABLE FOR DIALYSIS PATIENTS. Specimen Blood - Arm, Right Performing Organization Address City/State/Zipcode Phone Number [facility] [address] [place] [address] [facility] * ECG/EKG Interpretation (06/11/2018 7:33 AM INTERNET SYSTEMS ADMINISTRATOR) Narrative Performed At Leonardo Rai MD 06/11/20187:48 PM ECG/EKG Interpretation Date/Time: 06/11/2018 7:38 AM Performed by: Leonardo Rai MD Authorized by: Leonardo aRi MD The ECG was interpreted by ED physician. The ECG is interpreted as sinus rhythm. Rate is normal rate. Heart rate is 81 BPM. Sidney is normal. ECG reviewed and does not meet STEMI criteria. Patient tolerance: Patient tolerated the procedure well with no immediate complications * CBC with platelet count + automated diff (06/11/2018 7:23 AM INTERNET SYSTEMS ADMINISTRATOR) Only the most recent of 5 results within the time period is included. WBC 5.3 3.5 - 10.5 K/L [facility] RBC 2.89 (L) 3.93 - 5.22 M/L [facility] Hemoglobin 9.0 (L) 11.2 - 15.7 GM/DL [facility] Hematocrit 30.0 (L) 34.1 - 44.9 % [facility] MCV 103.8 (H) 79.4 - 94.8 fL [facility] MCH 31.1 25.6 - 32.2 pg [facility] MCHC 30.0 (L) 32.2 - 35.5 GM/DL [facility] RDW 15.8 (H) 11.7 - 14.4 % [facility] Platelets 118 (L) 150 - 450 K/CU MM [facility] MPV 10.8 9.4 - 12.3 fL [facility] nRBC 0 0 - 0 /100 WBC [facility] % Neutros 67 % [facility] % Lymphs 19 % [facility] % Monos 6 % [facility] % Eos 6 % [facility] % Baso 1 % [facility] # Neutros 3.58 1.56 - 6.13 K/L [facility] # Lymphs 1.03 (L) 1.18 - 3.74 K/L [facility] # Monos 0.34 0.24 - 0.36 K/L [facility] # Eos 0.29 0.04 - 0.36 K/L [facility] # Baso 0.04 0.01 - 0.08 K/L [facility] Immature 1 0 - 1 % [facility] Granulocytes-Relative [facility] Specimen Blood Performing Organization Address City/State/Zipcode Phone Number [facility] [address] [place] [address] [facility] * ECG 12 lead (06/11/2018 7:15 AM INTERNET SYSTEMS ADMINISTRATOR) Only the most recent of 5 results within the time period is included. Narrative Performed At Ventricular Rate 81 BPM GE MUSE Atrial Rate 81 BPM P-R Interval 166 ms QRS Duration 84 ms Q-T Interval 386 ms QTC Calculation(Bazett) 448 ms P Sidney 32 degrees R Sidney -33 degrees T Sidney 52 degrees Normal sinus rhythm Left axis deviation Low voltage QRS Septal infarct , age undetermined Possible Lateral infarct , age undetermined Abnormal ECG No previous ECGs available Confirmed by MD Galvez Mahboob ([id number]) on 06/11/2018 2:48:46 PM Procedure Note Interface, External Ris In - 06/11/2018 2:49 PM INTERNET SYSTEMS ADMINISTRATOR Ventricular Rate 81 BPM Atrial Rate 81 BPM P-R Interval 166 ms QRS Duration 84 ms Q-T Interval 386 ms QTC Calculation(Bazett) 448 ms P Sidney 32 degrees R Sidney -33 degrees T Sidney 52 degrees Normal sinus rhythm Left axis deviation Low voltage QRS Septal infarct , age undetermined Possible Lateral infarct , age undetermined Abnormal ECG No previous ECGs available Confirmed by MD Galvez Mahboob ([id number]) on 06/11/2018 2:48:46 PM Performing Organization Address City/State/Zipcode Phone Number [employer] * POC-Glucose meter (06/06/2018 12:26 PM INTERNET SYSTEMS ADMINISTRATOR) Only the most recent of 22 results within the time period is included. POC-Glucose Meter 231 (H)Comment: TESTED AT 70 - 110 mg/dL [facility] [address] [facility] [address] Specimen Blood Performing Organization Address City[facility] Phone Number [place] [phone] [place], [place] [phone] [facility] * MR brain without IV contrast (06/06/2018 11:26 AM INTERNET SYSTEMS ADMINISTRATOR) Narrative Performed At FINAL REPORT [employer] MR, BRAIN, WITHOUT CONTRAST INDICATION: Stroke weakness, [...] MD Report Verified Date/Time:06/06/2018 11:30:38 Reading Location: [facility] C013 Neuro Reading Room Procedure Note Interface, External Ris In - 06/06/2018 11:32 AM INTERNET SYSTEMS ADMINISTRATOR FINAL REPORT MR, BRAIN, WITHOUT CONTRAST INDICATION: [...] Report Verified Date/Time: 06/06/2018 11:30:38 Reading Location: [facility] C013 Neuro Reading Room Performing Organization Address City/State/Zipcode Phone Number [facility] * EEG AWAKE AND DROWSY (06/06/2018 10:24 AM INTERNET SYSTEMS ADMINISTRATOR) Narrative Performed At DATE OF EXAMINATION: 06/06/18 [employer] EEG NO: [id number] ICD-10: G40.9 CPT: 52110 CONDITION OF REPORT: This is a digital [...] epilepsy. Baldo Marinelli MD Department of Neurology [facility] Procedure Note Interface, External Ris In - 06/06/2018 11:39 AM INTERNET SYSTEMS ADMINISTRATOR DATE OF EXAMINATION: 06/06/18 EEG NO: [id number] ICD-10: G40.9 CPT: 65246 CONDITION OF REPORT: This is a digital [...] epilepsy. Baldo Marinelli MD Department of Neurology [facility] Performing Organization Address City/State/Zipcode Phone Number GE RIS * T3, free (06/06/2018 6:54 AM INTERNET SYSTEMS ADMINISTRATOR) T3, Free 2.50 1.71 - 3.71 pg/mL [facility] Specimen Blood - Arm, Left Narrative Performed At Performing Organization Address City/State/Zipcode Phone Number [facility] [address] [address] [phone] [place] [address] * T4, free (06/06/2018 6:54 AM INTERNET SYSTEMS ADMINISTRATOR) Free T4 1.06 0.70 - 1.48 ng/dL [facility] Specimen Blood - Arm, Left Performing Organization Address [facility] Phone Number [address] [address] [phone] [place] [address] * Blood gas, arterial (06/05/2018 6:20 PM INTERNET SYSTEMS ADMINISTRATOR) pH, Arterial 7.48 (H) 7.35 - 7.45 [facility] pCO2, Arterial 37 35 - 45 mmHg [facility] pO2, Arterial 57 (L) 80 - 90 mmHg [facility] O2 Sat, Arterial 92.7 (L) 96.0 - 97.0 % [facility] HCO3, Arterial 27 21 - 29 mmol/L [facility] Base Excess, Arterial 2.7 -2.0 - 3.0 mmol/L [facility] Patient Temperature 35.9 C [facility] FIO2 21.0 % [facility] Specimen Blood, Arterial - Arm, Left Performing Organization Address [facility] Phone Number [address] [address] [phone] [place] [address] * Phosphorus (06/05/2018 5:49 AM INTERNET SYSTEMS ADMINISTRATOR) Phosphorus 3.9 2.3 - 4.7 mg/dL [facility] Specimen Blood - Arm, Left Performing Organization Address City[facility] [place] [address] [phone] [address] * Potassium (06/03/2018 6:08 PM INTERNET SYSTEMS ADMINISTRATOR) Only the most recent of 2 results within the time period is included. Potassium 5.5 (H) 3.5 - 5.1 meq/L [facility] Specimen Blood - Arm, Left Performing Organization Address [facility] Phone Number [address] * Hemoglobin and hematocrit (06/02/2018 5:51 PM INTERNET SYSTEMS ADMINISTRATOR) Hemoglobin 8.3 (L) 11.2 - 15.7 GM/DL [facility] Hematocrit 26.8 (L) 34.1 - 44.9 % [facility] Specimen Blood - Arm, Left Performing Organization Address [facility] Phone Number [address] * Ammonia (06/02/2018 5:51 PM INTERNET SYSTEMS ADMINISTRATOR) Ammonia 38 18 - 72 mol/L [facility] Specimen Blood - Arm, Left Performing Organization Address [facility] Phone Number [address] * Urinalysis w/Microscopic + Reflex to Culture (06/02/2018 3:15 PM INTERNET SYSTEMS ADMINISTRATOR) Color, UA Yellow [facility] Clarity, UA Hazy [facility] Specific [place], UA 1.013 1.001 - 1.035 [facility] pH, UA 5.0 5.0 - 8.0 [facility] Protein, UA 30 mg/dL (A) Negative [facility] Glucose, UA Negative Negative [facility] Ketones, UA Negative Negative [facility] Bilirubin, UA Negative Negative [facility] Blood, UA Large (A) Negative [facility] Nitrite, UA Negative Negative [facility] Leukocytes, UA Large (A) Negative [facility] Urobilinogen, UA 0.2 0.2 - 1.0 mg/dL [facility] RBC, UA 327 /HPF [facility] WBC, UA 81 /HPF [facility] Squam Epithel, UA 4 /HPF [facility] Hyaline Casts, UA 6 /LPF [facility] Specimen Source [facility] Specimen Urine - Urine, Ramey Performing Organization Address [facility] Phone Number [address] [address] [facility] * Urine culture (06/02/2018 3:15 PM INTERNET SYSTEMS ADMINISTRATOR) Result ESCHERICHIA COLI (A) [facility] Specimen Urine - Urine, Ramey Antibiotic [...] <=20: Susceptible Escherichia coli Performing Organization Address [facility] Phone Number [address] [address] [facility] [place] * TSH (06/02/2018 5:34 AM INTERNET SYSTEMS ADMINISTRATOR) TSH 9.24 (H) 0.35 - 4.94 uIU/mL [facility] Specimen Blood - Arm, Right Performing Organization Address [facility] Phone Number [facility] [address] [place] [address] [facility] * Hepatic function panel (06/02/2018 5:34 AM INTERNET SYSTEMS ADMINISTRATOR) Protein, Total 5.9 (L)Comment: Specimen 6.0 - 8.3 gm/dL [facility] Albumin 3.0 (L)Comment: Specimen 3.5 - 5.0 g/dL [facility] slightly hemolyzed [facility] Total Bilirubin 0.3Comment: Specimen slightly 0.2 - 1.2 mg/dL [facility] Bilirubin, Direct 0.1Comment: Specimen slightly 0.1 - 0.5 mg/dL [facility] Alkaline Phosphatase 86 40 - 150 U/L [facility] AST 29Comment: Specimen slightly 5 - 34 U/L [facility] ALT 21Comment: Specimen slightly 6 - 55 U/L [facility] Specimen Blood - Arm, Right Performing Organization Address City/State/Zipcode Phone Number [facility] [address] [place] [address] [phone] [address] * Venous doppler legs bilateral (06/01/2018 8:32 PM INTERNET SYSTEMS ADMINISTRATOR) Ejection Fraction [facility]ART[facility] MKCKESSON CPACS Impressions Performed At Right Impression [facility] 1. There is no deep [...] At LAB - Lower Extremities DVT Study [facility]ographics [facility] Patient Name LUCAS WRIGHT Date of Study06/01/2018 BEN [id number] Visit Number [id number] Gender Female Accession Number [id number] Date of Birth1930 [facility] Rusty Neil Room [id number] Physician Yoly GalarzaInterpreting Maura Mcleod MD RVTPhysician [...] External Ris In - 06/02/2018 5:36 PM INTERNET SYSTEMS ADMINISTRATOR PV LAB - Lower Extremities DVT Study Demographics Patient Name LUCAS WRIGHT Date of Study 06/01/2018 BEN Age 87 Visit Number [id number] Gender Female Accession Number [id number] Date of 1930 Referring Smooth Neil Room Number 2437 Physician Industrial Relations Officer Mounika Galarza Interpreting Maura Mcleod MD RVT [...] Number [facility] ECHO HEART[facility] MKCKESSON CPACS after 09/13/2017 Insurance Payer Benefit Subscriber ID Type Phone Address Plan / Group [employer] xxxxxxxxx Maps O ALL Contracted Advance Directives For more information, please contact: [facility] [address] [place] [id number] Date Inactivated Comments Code Status Date Activated 06/11/2018 7:00 AM Full Code 06/01/2018 4:58 PM This code status was determined by: Patient 06/01/2016 6:47 PM Full Code 05/30/2016 1:41 PM This code status was determined by: Patient 05/01/2014 6:21 PM Full Code 04/29/2014 9:23 PM This code status was determined by: Patient
[2018-09-14 01:17] VITALS: BP 137/47
[2018-09-14 04:36] LABS: ABG PCO2 53 mmHg (41-51); ABG PH 7.35 (7.31-7.41)
[2018-09-14 04:37] LABS: ABG HCO3 29 mmol/L (23-28); ABG PO2 43 mmHg (80-105)
--- NOTE | 2018-09-14 05:22 | NUR ---
LAND INSPECTOR AND IN ROOM WITH PT AND FAMILY DISCUSSINGS THERISKS OF LEAVING AMA, INCLUDING . PT'S DAUGHTERS VERBALIZED UNDERSTANDING OF RISKS.
--- NOTE | 2018-09-14 05:48 | NUR ---
TRANSFER INITIATED AT THIS TIME
[2018-09-14] MEDS ORDERED: INSULIN REGULAR, HUMAN 100 UNIT/1 ML 3ML VIAL SQ SCH (07:30)
--- NOTE | 2018-09-14 18:38 | History and Physical ---
The patient was in the emergency room on September 14, 2018. PRIMARY CARE PHYSICIAN: Dr. Abigail Wyatt. ER PHYSICIAN: Dr. Betancourt. Please review ER note and evaluation. The patient was not admitted to the hospital. Matter of fact, the patient left the hospital prior to being admitted to the service. Please review Dr. Betancourt and nursing note on the patient's visit and prior to her discharge events that involved plan of care. MD AUTUMN Rutherford/MODL /[id number]
== END 2018-09-14 06:00 | disposition home or self-care (01) ==
LOC: ER 17:46 → ERHOLD 09-14 00:31
PROVIDERS: ADMIT Internal Medicine; ATTEND Internal Medicine
DX: R41.82 Altered mental status, unspecified (principal); Z83.3 Family history of diabetes mellitus; Z82.49 Family history of ischemic heart disease and other diseases of the circulatory system; Z84.89 Family history of other specified conditions; I50.9 Heart failure, unspecified; E11.9 Type 2 diabetes mellitus without complications
CPT/HCPCS: 36415 ×2; 36600; 70450; 71045; 80053; 80307; 81001; 82805 ×2; 82948 ×2; 83735; 83880; 84100; 84436; 84443; 84479; 84484; 85025; 85610; 85730; 93005; 99285; G0378; J0696; J7030